=== PATIENT | male | born 1990 | race Caucasian/White ===

== ENCOUNTER 2016-09-28 15:57 | Inpatient (IN) | payer MEDICAID, OTHER, SELFPAY ==
[~2016-09-28] VITALS: Ht 182.9 cm; Wt 124.6 kg
[2016-09-28] MEDS ORDERED: HYDROXYCUT PO (16:31)
[2016-09-28] MEDS ORDERED: probiotic PO (16:31)
[2016-09-28] MEDS ORDERED: Vitamin D PO (16:31)
[2016-09-28] MEDS ORDERED: Fish oil PO (16:31)
[2016-09-28 17:47] LABS: MEAN CORPUSCULAR HEMOGLOBIN 20.5 pg (27.0-33.0); MEAN CORPUSCULAR HGB CONC 32.2 g/dl (32.0-36.5); MEAN CORPUSCULAR VOLUME 63.7 fl (80.0-96.0); RED CELL DISTRIBUTION WIDTH 16.4 % (11.5-14.5); WHITE BLOOD COUNT 7.2 K/mm3 (4.0-10.0)
[2016-09-28 18:16] LABS: ALBUMIN 3.9 GM/DL (3.2-5.2); ALBUMIN/GLOBULIN RATIO 1.18 (1.00-1.93); ALKALINE PHOSPHATASE 68 U/L (45-117); ALT/SGPT 28 U/L (12-78); ANION GAP 4 MEQ/L (8-16); AST/SGOT 17 U/L (15-37); BILIRUBIN,DIRECT 0.4 MG/DL (0.0-0.2); BILIRUBIN,TOTAL 1.7 MG/DL (0.2-1.0); BLOOD UREA NITROGEN 9 MG/DL (7-18); CALCIUM LEVEL 8.9 MG/DL (8.5-10.1); CARBON DIOXIDE LEVEL 28 MEQ/L (21-32); CHLORIDE LEVEL 108 MEQ/L (98-107); CREATININE FOR GFR 1.11 MG/DL (0.70-1.30); GLOMERULAR FILTRATION RATE > 60.0 (>60); GLUCOSE, FASTING 82 MG/DL (70-105); POTASSIUM SERUM 3.8 MEQ/L (3.5-5.1); SODIUM LEVEL 140 MEQ/L (136-145); TOTAL PROTEIN 7.2 GM/DL (6.4-8.2)
[2016-09-28 18:21] LABS: METHADONE URINE NEGATIVE (NEGATIVE)
[2016-09-29] MEDS ORDERED: QUEtiapine FUMARATE 50 MG TAB PO SCH (09:00)
[2016-09-29] MEDS ORDERED: PROBCAP14 PO (09:25)
[2016-09-29] MEDS ORDERED: HYDROXYCUT PO (09:25)
[2016-09-29] MEDS ORDERED: FISH1CAP14 PO (09:25)
[2016-09-29] MEDS ORDERED: LORazepam 1 MG TAB PO PRN (09:30)
[2016-09-29] MEDS ORDERED: MOM 30ML SUSPENSION UDC PO PRN (09:30)
[2016-09-29] MEDS ORDERED: traZODone 50 MG TAB PO PRN (09:30)
[2016-09-29] MEDS ORDERED: MAALOX 30 ML SUSP *UDC PO PRN (09:30)
[2016-09-29 11:19] VITALS: BP 125/64
[2016-09-29] MEDS: risperiDONE 1 MG TAB PO SCH ×3 (12:21→20:19)
[2016-09-29] MEDS: SERTRALINE HCL 50 MG TAB PO SCH (12:21)
[2016-09-29] MEDS: QUEtiapine FUMARATE 50 MG TAB PO SCH (20:19)
[2016-09-30 06:04] VITALS: BP 122/56
[2016-09-30] MEDS: risperiDONE 1 MG TAB PO SCH (09:41)
[2016-09-30] MEDS: SERTRALINE HCL 50 MG TAB PO SCH (09:42)
[2016-09-30] MEDS: QUEtiapine FUMARATE 50 MG TAB PO SCH (09:42)
--- NOTE | 2016-09-30 09:45 | HPEPDOC ---
Medical History and Physical Date of Admission Sep 29, 2016 at 09:26 History and Physical PCP: None ATTENDING: Dr. Reji Voss HPI: 26yoM admitted to [facility] for depressive disorder, being medically examined today. Patient states he has chronic bilateral knee pain and sometimes his knees give out a couple of times per week. There is no erythema or swelling. No grinding or popping. No radiation of pain down the legs. He does not report neck pain or low back pain. Denies any fevers, chills, weakness, fatigue, ALVARES, CP , SOB, cough, palpitations, abdominal pain, N/V/D or changes in bowel or bladder habits. PMHx: Depression Self-mutilation BMI 35.9 PSHX: Right orchiopexy. 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 Illicit Drugs: Marijuana 1-2 times IV Drug Use: Denies Tattoos done unprofessionally: Denies FAMHX: Mother: Alive, history of lymphoma Father: Alive, bipolar disorder, thyroid disease, hyperlipidemia Siblings: 2 sisters Alive, one sister with history of gender identity disorder. Children: None Unexpected deaths due to medical reasons: None. ROS: As noted in HPI, otherwise 11pt ROS of systems reviewed and unremarkable. PE: GEN: 26 yo M, appears stated age. Well-nourished, well developed. No acute distress. Alert and oriented x 3. Pleasant, interactive. HEENT: Normocephalic, atraumatic. Pupils are equal, round, and reactive to light. Extraocular movements are intact. No nystagmus appreciated. Sclera are nonicteric. Conjunctiva without injection. Nose midline. Nasal turbinates without bogginess. EACs both patent BL. TMs both visualized and acharya with good cone of light, no bulging or erythema. No facial asymmetry. Moist mucous membranes. Dentition fair. Pharynx pink and moist, no cobblestoning. Neck supple , trachea midline. No lymphadenopathy or thyromegaly appreciated. CHEST: Regular rate and rhythm, +S1, +S2 LUNGS: Clear to auscultation bilaterally. No wheezes, rales, or rhonchi. Breathing appears symmetric and easy. Patient is speaking in full sentences. No accessory muscle use. ABD: Round, soft, mild suprapubic tenderness noted, non-distended. +Bowel sounds throughout. No rebound or guarding. No costovertebral angle tenderness. EXT: Pulses 2+ bilaterally dorsalis pedis and radial. No lower extremity edema appreciated. SKIN: [place], dry, warm. Capillary refill <2sec. No rashes. Superficial lacerations appear to be healing on the left forearm. Mild erythema noted. No drainage. Superficial lacerations are noted to anterior thighs bilaterally with mild erythema, no drainage. NEURO: Alert and oriented x 3. Cranial nerves III-XII are intact. No focal deficits appreciated. EKG: Pending. A&P: 26yoM admitted to [facility] for depressive disorder 1. Psych. Plan per Psychiatry. Obtain baseline EKG to assure the safety of psychiatric medications as they can prolong the QT interval. 2. Nicotine dependence. Patch available. 3. Bilateral knee pain. Tylenol as needed. Check x-ray of the knees bilaterally. 4. Follow up. No Primary Care Provider. Will attempt to establish PCP on discharge. 5. Suprapubic discomfort, mild. She denies any urinary or bowel complaints. Check UA/urine culture. 6. Superficial lacerations to the left inner forearm, bilateral thighs. Apply Bactroban twice a day as needed. 7. Hemoglobin 11.2. Recheck CBC. Consider further evaluation of anemia pending results. 8. Staff member Ed present throughout exam. Vital Signs Vital Signs Date Time Temp Pulse Resp B/P (MAP) Pulse Ox O2 Delivery O2 Flow Rate FiO2 09/30/16 06:04 97.2 50 18 122/56 (78) 09/29/16 11:19 Room Air 09/29/16 09:51 97 Laboratory Data Labs 24H Item Value Date Time White Blood Count 7.2 K/mm3 09/28/16 1732 Red Blood Count 5.47 M/mm3 09/28/16 173 Hemoglobin 11.2 g/dl L 09/28/16 173 Hematocrit 34.9 % L 09/28/16 173 Mean Corpuscular Volume 63.7 fl L 09/28/16 173 Mean Corpuscular Hemoglobin 20.5 pg L 09/28/16 173 Mean Corpuscular Hemoglobin Concent 32.2 g/dl 09/28/16 1732 Red Cell Distribution Width 16.4 % H 09/28/16 1732 Platelet Count 133 k/mm3 L 09/28/16 1732 Sodium Level 140 MEQ/L 09/28/16 1732 Potassium Level 3.8 MEQ/L 09/28/16 1732 Chloride Level 108 MEQ/L H 09/28/16 1732 Carbon Dioxide Level 28 MEQ/L 09/28/16 1732 Anion Gap 4 MEQ/L L 09/28/16 1732 Blood Urea Nitrogen 9 MG/DL 09/28/16 1732 Creatinine 1.11 MG/DL 09/28/16 1732 Glomerular Filtration Rate > 60.0 09/28/16 1732 Fasting Glucose 82 MG/DL 09/28/16 1732 Calcium Level 8.9 MG/DL 09/28/16 1732 Total Bilirubin 1.7 MG/DL H 09/28/16 1732 Direct Bilirubin 0.4 MG/DL H 09/28/16 1732 Aspartate Amino Transf (AST/SGOT) 17 U/L 09/28/16 1732 Alanine Aminotransferase (ALT/SGPT) 28 U/L 09/28/16 1732 Alkaline Phosphatase 68 U/L 09/28/16 1732 Total Protein 7.2 GM/DL 09/28/16 1732 Albumin 3.9 GM/DL 09/28/16 1732 Albumin/Globulin Ratio 1.18 09/28/16 1732 Thyroid Stimulating Hormone (TSH) 1.580 uIU/ML 09/28/16 1732 Salicylates Level < 1.7 MG/DL L 09/28/16 1732 Urine Opiates Screen NEGATIVE 09/28/16 1732 Urine Methadone Screen NEGATIVE 09/28/16 1732 Acetaminophen Level < 2.0 UG/ML L 09/28/16 1732 Urine Barbiturates Screen NEGATIVE 09/28/16 1732 Urine Phencyclidine Screen NEGATIVE 09/28/16 1732 Urine Amphetamines Screen NEGATIVE 09/28/16 1732 Urine Benzodiazepines Screen NEGATIVE 09/28/16 1732 Urine Cocaine Metabolite Screen NEGATIVE 09/28/16 1732 Urine Cannabinoids Screen NEGATIVE 09/28/16 1732 Ethyl Alcohol Level < 0.003 % 09/28/16 1732 Home Medications Scheduled (Fish Oil +D3 [id number] mg-Unit) 1 Cap Cap, 1 CAP PO WM (Probiotic) 1 Cap Cap, 1 CAP PO DAILY [Hydroxycut] , 1 CAP PO BID Allergies Coded Allergies: No Known Allergies (Verified , 10/30/02) Genny Arriaga Sep 30, 2016 09:45
--- NOTE | 2016-09-30 10:20 | MHHPE ---
DATE OF ADMISSION: 09/29/2016 CHIEF COMPLAINT: "I've been feeling depressed, and I have suicidal thoughts." HISTORY OF PRESENT ILLNESS: A 26-year-old male admitted to our unit with symptoms of severe depression with suicidal ideation. According to the record, the patient came to be evaluated. Says that has been feeling depressed for the last couple of weeks but has the sense that always have been depressed. The patient denies treatment for several years. The patient states that has frequent suicidal thoughts with a constant sense that he will like to go to sleep and not wake up. The patient reported that last night he cut himself on the arm and both thighs and has been cutting daily for the past week. He said that he broke a relationship with a girl 3 weeks ago. They were engaged for the last 6 years. The patient does not feel that the breakup of the relationship is significant for his present depression, although he admits that he has been feeling lonely. The patient also reports that he has been drinking beers daily for about 1-1/2 weeks and says that he is doing so in order to cope. The patient also reported that has had auditory and visual hallucinations in the past but very infrequently. During the interview today, the patient reports feeling depressed with low energy, isolation, increased appetite, increased sleep, very poor self-esteem, and suicidal thoughts and ideation. As above, the patient cut himself before admission. The patient also reports feeling hopelessness, helplessness, and worthlessness. During the interview, the patient reports that for years, the patient had mood swings. Reports that the change of mood has not correlated with stressors and usually come out of the blue. Says that changes from extremely happy to anxiety to extremely low, not wanting to do anything. Says that the period of time that he remains depressed, it varies but could be an average of 1-1/2 months. The patient states that has also highs, in which he is very positive and maybe spends more money than he should. He states that in the past, he was maxing out credit cards, but the amount of money he spent is limited since was allowed to have $300. He now deals with it not getting credit cards. During the interview, there is no evidence of psychotic symptoms, no auditory or visual hallucinations. The patient says that never thought of what could be his diagnosis; but again later on, he said that his father suffers from bipolar "type 1." I tried to get details about the information he has about bipolar type 1, and he said that he has had some reading about it in the past. The patient reports that he occasionally and very rarely will have auditory hallucinations, voices, several of them. They talk to him. They talk about hurting himself or "suicide." He also reported visual hallucinations very rarely in the past. Again, at this time, there is no evidence of psychotic symptoms. The patient reports that he has been drinking lately, in order to cope, be able to sleep, and to numb the emotions and "bad feelings." He says that used to drink in the context of going to a green party with friends, that the amount and frequency vary but could be 2-3 times a week maximum. PAST MEDICAL HISTORY: The patient denies any acute medical problem. No known drug allergies. PAST PSYCHIATRIC HISTORY: The patient has never been diagnosed of any psychiatric illness, although he reports that suffers from mood swings for many years "since I can remember." FAMILY HISTORY: The patient states that his father suffers from bipolar type 1, and his father's side of the family have been diagnosed of bipolar disorder. The patient has a brother with unknown diagnosis and says that has two brothers that abuse substances but does not want to elaborate. SUBSTANCE ABUSE HISTORY: As above, the patient is drinking beer nightly for the past 1-1/2 weeks. As above, the patient was drinking excessively in the context of going to parties with friends. The frequency was 2-3 times a month maximum. SOCIAL HISTORY: The patient was raised by both parents. Has two brothers and two sisters. The parents live in [place]. His father was an active-duty. He stated that he was bullied during high school years on a daily basis. Denies physical, emotional, or sexual abuse during childhood. He is living with friends now. 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 REVIEW OF SYSTEMS: CONSTITUTIONAL: No weight loss, fever, chills, weakness, or fatigue. HEENT: No visual loss, blurry vision, double vision, or yellow sclerae. No hearing loss, sneezing, congestion, runny nose, or sore throat. SKIN: No rash or itching. CARDIOVASCULAR: No chest pain, chest pressure, chest discomfort, palpitations, or edema. RESPIRATORY: No shortness of breath, cough, or sputum. GASTROINTESTINAL (GI): No anorexia, nausea, vomiting, or diarrhea. No abdominal pain or blood. GENITOURINARY (): No burning or pain on urination. NEUROLOGICAL: No headache, dizziness, syncope, paralysis, ataxia, numbness, or tingling. MUSCULOSKELETAL: No muscle, back pain, joint pain, or stiffness. HEMATOLOGIC: No anemia, bleeding, or bruising. LYMPHATICS: No history of a splenectomy. ENDOCRINOLOGIC: No reports of sweating, cold or heat intolerance. No polyuria or polydipsia. ALLERGIES: No history of asthma, hives, eczema, or rhinitis. PHYSICAL EXAMINATION: As per physician cook's assistant. LABORATORIES AT ADMISSION: CBC show a hemoglobin of 11.2, hematocrit of 34.9, MCV of 63.7, MCH of 20.5, RDW of 16.4, platelet count of 133. CMP is unremarkable, except increase of total bilirubin. Urine drug screen (UDS) is negative. Blood alcohol level is negative. TSH is unremarkable. MENTAL STATUS EXAMINATION: The patient is dressed in [facility]. The patient is cooperative. Speech is soft and monotone. Has fair eye contact. Mood is anxious and depressed. Affect is restricted. The patient is oriented to time, place, person, and situation. Maintains attention and concentration correctly. Instant recall, recent and remote memory are intact. Thought processes are coherent, logical, and goal-directed. The patient does not have auditory or visual hallucinations. The patient does not have paranoid, persecutory, somatic, grandiose, or mormon delusions. The patient is reporting suicidal ideation but not homicidal thoughts. Judgment and insight are limited. DIAGNOSES: AXIS I: Unspecified depressive disorder, rule out bipolar disorder. Alcohol abuse. Rule out substance-induced mood disorder AXIS II: Deferred. AXIS III: None acute. INITIAL TREATMENT PLAN: The patient was admitted to the unit. Complete history was obtained. With his permission, family will be contacted, and database will be expanded. His medication regimen will be reviewed and changed accordingly. He will be provided with protected environment. He will be treated with individual, group, and milieu therapies. He will also receive supportive psychoeducation. Discharge planning will commence immediately. Length of stay will be between 7 and 10 days. Outpatient followup will be strongly recommended. The treatment plan will focus initially on depression and risk for suicide and substance abuse. MARCUS
[2016-09-30] MEDS: MUPIROCIN 2% OINT 22 GM TUBE TOP SCH ×2 (11:26→21:19)
[2016-09-30] MEDS: CitaloPRAM (CeleXA) 10 MG TABLET PO SCH (11:27)
--- NOTE | 2016-09-30 13:42 | REP ---
Bilateral knee series: Nine views. History: Knee pain. Findings: Five views of each knee are presented. Bones, joints, and soft tissues are unremarkable on the right. On the left, there is an anterior and medial noncalcified 11 mm soft tissue nodule. This should be correlated clinically. No other radiographic finding. There is no evidence of arthropathy or joint effusion on either side. Impression: Anteromedial soft tissue nodule on the left at the level of the upper pole of the patella. On sunrise view, this appears to project from the skin consistent with a dermal lesion. No bony abnormality. Signed by Kennedy Bartholomew MD 09/30/2016 02:07 P
[2016-09-30 18:00] VITALS: BP 131/60
[2016-09-30] MEDS ORDERED: QUEtiapine FUMARATE 50 MG TAB PO SCH (21:00)
--- NOTE | 2016-09-30 21:13 | ECGEPIP ---
Stationary ECG Study [facility] Test Date: 2016-09-30 Pat Name: REJI FLOREZ Department: Room: [place] [address] Gender: M [employer] V[employer] Worker: PHILIPPE : 1990 Requested By: Genny Arriaga Order Number: [id number] Reading MD: Reji Voss Measurements Intervals [place] Rate: 63 P: 37 LA: 161 QRS: 55 QRSD: 110 T: 35 QT: 406 QTc: 418 Interpretive Statements SINUS RHYTHM Comparison tracing not on file Electronically Signed On 09-30-2016 21:13:18 EDT by Reji Voss
[2016-09-30] MEDS: OXcarbazepine 150 MG TAB PO SCH (21:16)
[2016-09-30] MEDS: lamoTRIgine 25 MG TAB PO SCH (21:17)
[2016-10-01 06:33] VITALS: BP 152/61
[2016-10-01 07:59] LABS: MEAN CORPUSCULAR HEMOGLOBIN 20.6 pg (27.0-33.0); MEAN CORPUSCULAR HGB CONC 31.7 g/dl (32.0-36.5); MEAN CORPUSCULAR VOLUME 64.8 fl (80.0-96.0); RED CELL DISTRIBUTION WIDTH 16.3 % (11.5-14.5); WHITE BLOOD COUNT 6.4 K/mm3 (4.0-10.0)
[2016-10-01] MEDS: CitaloPRAM (CeleXA) 10 MG TABLET PO SCH (08:16)
[2016-10-01] MEDS: OXcarbazepine 150 MG TAB PO SCH ×2 (08:16→20:24)
[2016-10-01] MEDS: MUPIROCIN 2% OINT 22 GM TUBE TOP SCH ×2 (08:18→21:00)
[2016-10-01 10:09] LABS: PERCENT SATURATION 17.9 % (19.7-37.4)
[2016-10-01] MEDS: QUEtiapine FUMARATE 100 MG TAB PO SCH (11:50)
--- NOTE | 2016-10-01 15:13 | IPN ---
DATE: 10/01/2016 26-year-old male admitted for depression and suicidal ideation. SUBJECTIVE: "I feel about the same." OBJECTIVE: The patient reports no side effects from the medication. The patient reports insomnia and says that he wakes up several times during the night. Continues to feel depressed and have mood swings. The patient is interacting with other patients and staff in the unit and is motivated for treatment. No evidence of psychotic symptoms. MENTAL STATUS EXAMINATION: The patient is dressed in [facility]. The patient is cooperative during examination. Has fair eye contact. Speech is slow and monotone. Mood is depressed and anxious. Affect is restricted. No delusions or hallucinations. Memory, attention, and concentration are fair. The patient reports intermittent suicidal thoughts. No homicidal ideation. Insight and judgment limited. ASSESSMENT: 1. Depression. 2. Suicidal ideation. 3. Alcohol abuse. PLAN: 1. Increase Trileptal to 150 mg by mouth twice a day. 2. Continue with Lamictal 25 mg by mouth at night. 3. Increase Seroquel to 100 mg by mouth at night. 4. Continue with Celexa 5 mg by mouth in the morning. 5. Continue medication management, individual and group therapy.
[2016-10-01 18:28] VITALS: BP 118/59
[2016-10-01] MEDS: lamoTRIgine 25 MG TAB PO SCH (20:24)
[2016-10-01] MEDS ORDERED: hydrOXYzine 50 MG TAB PO STA (23:01)
[2016-10-02] MEDS: ACETAMINOPHEN TAB 650MG DOSE (2X325MG) PO PRN (06:42)
[2016-10-02 07:16] VITALS: BP 131/60
[2016-10-02] MEDS: OXcarbazepine 150 MG TAB PO SCH ×2 (08:08→21:40)
[2016-10-02] MEDS: CitaloPRAM (CeleXA) 10 MG TABLET PO SCH (08:08)
[2016-10-02] MEDS: MUPIROCIN 2% OINT 22 GM TUBE TOP SCH ×2 (08:09→21:00)
[2016-10-02] MEDS: QUEtiapine FUMARATE 100 MG TAB PO SCH (08:10)
[2016-10-02 08:11] LABS: MEAN CORPUSCULAR HEMOGLOBIN 20.8 pg (27.0-33.0); MEAN CORPUSCULAR HGB CONC 32.2 g/dl (32.0-36.5); MEAN CORPUSCULAR VOLUME 64.6 fl (80.0-96.0); RED CELL DISTRIBUTION WIDTH 16.4 % (11.5-14.5); WHITE BLOOD COUNT 5.8 K/mm3 (4.0-10.0)
--- NOTE | 2016-10-02 17:21 | IPN ---
DATE: 10/02/2016 A 26-year-old admitted for depression and suicidal ideation. SUBJECTIVE: "I'm feeling a little better. " OBJECTIVE: The patient denies any side effect from medication. Continues to report insomnia and anxiety yesterday talking to other patients The patient is motivated for treatment. There is no evidence of psychotic symptoms. No auditory or visual hallucinations or delusions. MENTAL STATUS EXAMINATION: Patient dressed in [facility]. Patient is cooperative, has fair eye contact. Speech is slow and monotone. Mood is depressed and anxious. Affect is restricted. No psychotic symptoms. No auditory or visual hallucinations or delusions. No feelings of paranoia. Memory, attention and concentration are fair. Patient reports intermittent suicidal thoughts but is able to contract for safety. No homicidal ideation. Insight and judgment are limited. ASSESSMENT: 1. Depression. 2. Suicidal ideation. 3. Alcohol abuse. PLAN: 1. Continue Trileptal 150 mg by mouth twice a day. 2. Continue Lamictal 25 mg by mouth at bedtime. 3. Increase Seroquel to 150 mg by mouth at bedtime. 4. Continue Celexa 5 mg by mouth every morning. 5. Continue medication management, individual and group therapy.
[2016-10-02 18:00] VITALS: BP 137/80
[2016-10-02] MEDS: QUEtiapine FUMARATE 50 MG TAB PO SCH (21:40)
[2016-10-02] MEDS: lamoTRIgine 25 MG TAB PO SCH (21:40)
[2016-10-03 06:00] VITALS: BP 139/70
[2016-10-03] MEDS: ACETAMINOPHEN TAB 650MG DOSE (2X325MG) PO PRN (06:31)
[2016-10-03 07:22] LABS: MEAN CORPUSCULAR HEMOGLOBIN 20.7 pg (27.0-33.0); MEAN CORPUSCULAR HGB CONC 31.8 g/dl (32.0-36.5); MEAN CORPUSCULAR VOLUME 65.2 fl (80.0-96.0); RED CELL DISTRIBUTION WIDTH 16.7 % (11.5-14.5); WHITE BLOOD COUNT 7.1 K/mm3 (4.0-10.0)
[2016-10-03] MEDS: CitaloPRAM (CeleXA) 10 MG TABLET PO SCH (08:20)
[2016-10-03] MEDS: OXcarbazepine 150 MG TAB PO SCH ×2 (08:20→20:59)
[2016-10-03] MEDS: MUPIROCIN 2% OINT 22 GM TUBE TOP SCH ×2 (08:20→20:59)
--- NOTE | 2016-10-03 12:42 | IPN ---
DATE: 10/03/2016 CHIEF COMPLAINT: Says feels better. SUBJECTIVE: Seen for followup, indicates feels better, is less depressed, less anxious, has been sleeping better. Denies any thoughts of harming himself or anyone else. Says had cut himself prior to coming in, in his left arm, in order to obtained emotional relief. Has no desires to cut himself either. MENTAL STATUS EXAMINATION: He is neat. He is cooperative. He is coherent. There is good eye contact. Affect is reactive, broad. No evidence of any thoughts of harming himself. Denies any suicidal thoughts or intent. No homicidal ideas or intents. No evidence of any psychosis. Cognition grossly intact. His judgment is good. Insight is possibly improved. ASSESSMENT: Unspecified depressive disorder. Rule out bipolar disorder. Alcohol use disorder. PLAN: Continue current care, including the Seroquel, Trileptal, Lamictal and Celexa. Encourage participation in activities in the unit. VITAL SIGNS: Blood pressure 139/70, pulse 58, temperature 98.1.
[2016-10-03 18:00] VITALS: BP 136/61
[2016-10-03] MEDS: lamoTRIgine 25 MG TAB PO SCH (20:59)
[2016-10-03] MEDS: QUEtiapine FUMARATE 50 MG TAB PO SCH (20:59)
[2016-10-04 06:00] VITALS: BP 113/56
[2016-10-04] MEDS: CitaloPRAM (CeleXA) 10 MG TABLET PO SCH (08:03)
[2016-10-04] MEDS: OXcarbazepine 150 MG TAB PO SCH ×2 (08:03→21:10)
[2016-10-04] MEDS: ACETAMINOPHEN TAB 650MG DOSE (2X325MG) PO PRN ×2 (08:05→21:11)
[2016-10-04] MEDS: MUPIROCIN 2% OINT 22 GM TUBE TOP SCH ×2 (09:00→21:00)
[2016-10-04 18:00] VITALS: BP 140/85
[2016-10-04] MEDS ORDERED: LORazepam 1 MG TAB PO ONE (18:20)
[2016-10-04] MEDS: lamoTRIgine 25 MG TAB PO SCH (21:10)
[2016-10-04] MEDS: QUEtiapine FUMARATE 50 MG TAB PO SCH (21:10)
[2016-10-05 06:16] VITALS: BP 124/57
[2016-10-05] MEDS: MUPIROCIN 2% OINT 22 GM TUBE TOP SCH (08:02)
[2016-10-05] MEDS: CitaloPRAM (CeleXA) 10 MG TABLET PO SCH (08:04)
[2016-10-05] MEDS: OXcarbazepine 150 MG TAB PO SCH (08:04)
[2016-10-05] MEDS: ACETAMINOPHEN TAB 650MG DOSE (2X325MG) PO PRN (08:05)
[2016-10-05] MEDS ORDERED: CELE10TA PO (11:27)
[2016-10-05] MEDS ORDERED: QUET5TAB PO (11:27)
[2016-10-05] MEDS ORDERED: LAMI25TA PO (11:27)
[2016-10-05] MEDS ORDERED: OXCA150T PO (11:27)
--- NOTE | 2016-10-06 00:35 | MHDS ---
DATE OF ADMISSION: 09/29/2016 DATE OF DISCHARGE: 10/05/2016 LEGAL STATUS AT ADMISSION: 9.39 legal status. HISTORY OF PRESENT ILLNESS: 26-year-old male without prior psychiatric history admitted to our unit on a 9.39 legal status. Patient reported severe symptoms of depression and suicidal ideation. According to the record, patient has been feeling depressed for the last couple of weeks, but also has the sense that he has always been depressed. Patient denies treatment for several years. Patient reported he has frequent suicidal thoughts with a constant sense that he would like to go to sleep and not wake up. Patient reported that last night he cut himself on the left arm and both thighs and has been cutting daily for the past week. He said that he broke a relationship with a girl 3 weeks ago. They were engaged for the last 6 years. Patient does not feel that the breakup of the relationship is significant for his present depression, although he admits that he has been feeling lonely. Patient also reports that he has been drinking beers daily for about 1-1/2 weeks and says that he is doing so in order to cope. Patient also reported that he had auditory and visual hallucinations in the past, but they are very "infrequent." During the interview today, patient reports feeling depressed with low energy, isolation, increased appetite, increased sleep, very poor self-esteem, and suicidal thoughts. As above, patient cut himself before admission. Patient also reports feeling hopeless and helpless and also worthless. During the interview, patient reports that for years he has had mood swings and that the changes of his mood are not correlated with stressors as they usually come out of the blue. He says that he changes from extremely happy to anxiety to extremely low, not wanting to do anything. He says that the period of time that he remains depressed varies, but could be an average of 1-1/2 months. Patient states that he also has highs in which he is very positive and maybe spends more money than he should. He says that in the past he has maxed out his credit cards, but the amount of money he spent is limited since he is allowed to have a maximum of $300. During the interview, there is no evidence of psychotic symptoms, no auditory or visual hallucinations. Exploring the auditory hallucinations in the past, patient said that he heard voices "several of them," voices that talked to him and they talked about hurting himself or "suicide." He also reported visual hallucinations, but very rarely. Again, at this time, there is no evidence of any psychotic symptoms. Patient reports that he has been drinking lately in order to cope, to be able to sleep, and also to numb his emotions and "bad feelings." He stated that he used to drink in the context of going to a green party with friends but the frequency could be no more than 2-3 times a week. At admission, CBC showed a hemoglobin of 11.2, hematocrit of 34.9, MCV of 63.7, MCH of 20.5, RDW of 16.4, platelets 133. CMP was unremarkable except total bilirubin of 1.7. Urine drug screen was negative. Blood alcohol level was negative. HOSPITAL COURSE: After the first evaluation, and given the fact that he was giving a history of mood swings and a family history of bipolar disorder, he was started on Trileptal 150 mg by mouth twice a day and Lamictal 25 mg by mouth nightly with the idea of maximizing the last medication and then taper Trileptal and discontinue, he was also started on Celexa 5 mg by mouth every morning. Given the fact that he reports severe problem with sleep, he is started on Seroquel, increased up to 150 mg by mouth nightly, for patient to be able to sleep. Patient tolerated well the medication. His mood changed very rapidly, actually he was interacting very well with other patients and staff. I could not observe, during this admission, a clear cut of a depressive episode, so everything was taken from the information he was giving us at admission. On 10/05/2016, he said that he was ready to go, that he was not having any suicidal or homicidal ideation, and that he wanted to continue his treatment as outpatient. Social work said that at admission he did not want to sign a release of information for any relative. Now, at the moment of discharge, patient says that his father came to town to pickle maker his brother and then he realized that he was in the hospital and he has offered for him to go and live with him in [place]. He is to think about it, but probably he will go. At the moment of discharge, patient is in a stable condition with no auditory or visual hallucinations, delusions, suicidal or homicidal ideation. His diagnosis at this point is not clear since I could not see a clear cut depressive episode and his mood improved in 48-72 hours. Anyhow, he will continue with the current medications at discharge and will be followed up by psychiatry at the local [facility]. MEDICATIONS AT DISCHARGE: - Lamictal 25 mg by mouth nightly to be increased slowly as tolerated to reach mood stabilization - Trileptal 150 mg by mouth twice a day to be tapered and discontinued after Lamictal is at therapeutic level - Celexa 5 mg by mouth every morning, the low dose is due to the fact that he reported bipolar like symptoms MENTAL STATUS EXAMINATION AT DISCHARGE: Patient is dressed in [facility]. Patient is calm and cooperative. His speech is clear, coherent, with normal rate and is spontaneous. Patient has good eye contact. Mood is euthymic. Affect is appropriate and congruent with mood. Patient is oriented to time, place, person, and situation. Maintains attention and concentration correctly. Instant recall, recent, and remote memory are intact. Thought processes are coherent, logical, and goal-directed. Patient does not have auditory or visual hallucinations. Patient does not have paranoid, persecutory, somatic, grandiose, or religions delusions. Patient denies suicidal or homicidal ideation. Judgment and insight are fair. DISCHARGE DIAGNOSES: AXIS I: Unspecified depressive disorder. Rule out bipolar disorder. Alcohol abuse. AXIS II: Deferred. AXIS III: None acute. CONDITION AT DISCHARGE: Stable. No suicidal or homicidal ideation. No auditory or visual hallucinations, no delusions. INSTRUCTIONS TO THE PATIENT: Patient is to continue taking his medications as prescribed on followup appointments. He is advised to maintain absolute sobriety from drugs and alcohol. Patient will have scheduled appointment for individual psychotherapy, medication management, and primary care physician.
== END 2016-10-05 13:40 | disposition home or self-care (01) | DRG 754 ==
LOC: M ED 18:48 → M ED INP 09-29 09:26 → M PSY 09-29 10:39
PROVIDERS: ADMIT Psychiatry & Neurology Psychiatry; ATTEND Psychiatry & Neurology Psychiatry
DX: F32.9 Major depressive disorder, single episode, unspecified (principal); R45.851 Suicidal ideations; F10.10 Alcohol abuse, uncomplicated; Z68.35 Body mass index [BMI] 35.0-35.9, adult; F17.290 Nicotine dependence, other tobacco product, uncomplicated; Z80.7 Family history of other malignant neoplasms of lymphoid, hematopoietic and related tissues; Z81.8 Family history of other mental and behavioral disorders; Z83.49 Family history of other endocrine, nutritional and metabolic diseases; M25.561 Pain in right knee; M25.562 Pain in left knee; S51.812A Laceration without foreign body of left forearm, initial encounter; S71.111A Laceration without foreign body, right thigh, initial encounter; S71.112A Laceration without foreign body, left thigh, initial encounter; Z79.899 Other long term (current) drug therapy; X78.1XXA Intentional self-harm by knife, initial encounter; Y92.9 Unspecified place or not applicable; Y99.9 Unspecified external cause status; Y93.9 Activity, unspecified

== ENCOUNTER 2016-10-15 16:22 | Inpatient (IN) | payer MEDICAID, SELFPAY ==
[~2016-10-15] VITALS: Ht 182.9 cm; Wt 132.2 kg
[~2016-10-15 16:22] MED LIST: CELE10TA PO; FISH1CAP14 PO; Fish oil PO; HYDROXYCUT PO; LAMI25TA PO; OXCA150T PO; PROBCAP14 PO; QUET5TAB PO; Vitamin D PO; probiotic PO
[2016-10-15 17:25] LABS: MEAN CORPUSCULAR HEMOGLOBIN 20.8 pg (27.0-33.0); MEAN CORPUSCULAR HGB CONC 32.2 g/dl (32.0-36.5); MEAN CORPUSCULAR VOLUME 64.8 fl (80.0-96.0); RED CELL DISTRIBUTION WIDTH 15.9 % (11.5-14.5); WHITE BLOOD COUNT 6.6 K/mm3 (4.0-10.0)
[2016-10-15 17:49] LABS: METHADONE URINE NEGATIVE (NEGATIVE)
[2016-10-15 18:01] LABS: ALBUMIN 4.2 GM/DL (3.2-5.2); ALBUMIN/GLOBULIN RATIO 1.14 (1.00-1.93); ALKALINE PHOSPHATASE 76 U/L (45-117); ALT/SGPT 43 U/L (12-78); ANION GAP 8 MEQ/L (8-16); AST/SGOT 19 U/L (15-37); BILIRUBIN,DIRECT 0.3 MG/DL (0.0-0.2); BILIRUBIN,TOTAL 2.3 MG/DL (0.2-1.0); BLOOD UREA NITROGEN 9 MG/DL (7-18); CALCIUM LEVEL 8.8 MG/DL (8.5-10.1); CARBON DIOXIDE LEVEL 28 MEQ/L (21-32); CHLORIDE LEVEL 107 MEQ/L (98-107); GLOMERULAR FILTRATION RATE > 60.0 (>60); GLUCOSE, FASTING 107 MG/DL (70-105); SODIUM LEVEL 143 MEQ/L (136-145); TOTAL PROTEIN 7.9 GM/DL (6.4-8.2)
[2016-10-15] MEDS ORDERED: OXCA150T PO (20:32)
[2016-10-15] MEDS ORDERED: SERO50TA PO (20:32)
[2016-10-15] MEDS ORDERED: CITA10TA5 PO (20:32)
[2016-10-15] MEDS ORDERED: LAMO25TA2 PO (20:32)
[2016-10-15] MEDS ORDERED: lamoTRIgine 25 MG TAB PO SCH (21:00)
[2016-10-15] MEDS ORDERED: MAALOX 30 ML SUSP *UDC PO PRN (22:45)
[2016-10-15] MEDS ORDERED: MOM 30ML SUSPENSION UDC PO PRN (22:45)
[2016-10-15] MEDS ORDERED: traZODone 50 MG TAB PO PRN (22:45)
[2016-10-15] MEDS: QUEtiapine FUMARATE 50 MG TAB PO SCH (23:15)
[2016-10-15] MEDS: OXcarbazepine 150 MG TAB PO SCH (23:15)
[2016-10-15] MEDS: ACETAMINOPHEN TAB 650MG DOSE (2X325MG) PO PRN (23:16)
[2016-10-16 00:59] VITALS: BP 138/80
[2016-10-16 06:33] VITALS: BP 143/63
[2016-10-16] MEDS: OXcarbazepine 150 MG TAB PO SCH ×2 (08:10→21:32)
[2016-10-16] MEDS: ACETAMINOPHEN TAB 650MG DOSE (2X325MG) PO PRN ×2 (08:11→21:33)
[2016-10-16] MEDS ORDERED: CitaloPRAM (CeleXA) 10 MG TABLET PO SCH (09:00)
[2016-10-16] MEDS: lamoTRIgine 25 MG TAB PO SCH ×2 (12:26→21:32)
--- NOTE | 2016-10-16 16:39 | MHHPE ---
DATE OF ADMISSION: 10/15/2016 LEGAL STATUS AT ADMISSION: 939 legal status. CHIEF COMPLAINT: "I've been having suicidal thoughts." HISTORY OF PRESENT ILLNESS: A 26-year-old male with history of depression admitted to our unit on a 939 legal status. According to the chart, the patient was brought to the police on a 941 after he made suicidal threats to his friend and his father. The patient stated that he was drinking. He was discharged from our unit on 10/05/2016. The patient also reported that he was cutting himself and has multiple superficial cuts on the left arm that he made with a razor blade. The patient admits the use of alcohol and cannabis. The patient was guarded during his evaluation at the emergency department, and he was minimizing. He was making statements such as, "I guess so." During the interview today, the patient states that he minimized and at times lied to me in order to be discharged. Said that he went to visit his family in [place] and returned. He says that he has been having significant mood swings and depression, but says that when he drinks, feelings get worse, and he has a tendency to act out his thoughts. The patient reports that he has been compliant with the medication, and the only time he did not take the medication was when he drank. During the interview today, the patient reports feeling depressed, hopeless, poor energy, insomnia, and has suicidal thoughts. The patient can make the difference between the suicidal thoughts and the self-inflicted behavior when he cuts his arm. During the interview there is no evidence of psychotic symptoms. No auditory or visual hallucinations or delusions. The patient denies side effect from the medication. PAST MEDICAL HISTORY: The patient denies any acute medical problems. ALLERGIES: No known drug allergies. PAST PSYCHIATRIC HISTORY: As above. The patient was admitted to our unit and discharged on 10/05/2016. He was admitted for depression and suicidal ideation, and he was reported significant mood swings, sometimes could be compatible with bipolar illness. FAMILY HISTORY: The patient reports his father suffers from bipolar type 1 disorder and also said that his father's side of the family has been diagnosed of bipolar disorder. He stated that he has two brothers that use substances, but he did not want to elaborate, and one of the brothers he believes has psychiatric problems but does not know the diagnosis. SUBSTANCE ABUSE HISTORY: The patient admits the use of alcohol and marijuana. The patient stated that he used to drink in the context of going out with friends and socializing, but stated that this is happening 2-3 times a month at the most. SOCIAL HISTORY: The patient was raised by both parents, has two brothers and two sisters. His parents live in [place]. His father was in the . He reports being bullied during high school on a daily basis. He denied any physical, emotional or sexual abuse during childhood. 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 Says that his father wants him to move to [place]. REVIEW OF SYSTEMS: Constitutional: No weight loss, fever, chills, weakness or fatigue. HEENT: No visual loss, blurry vision, double vision or yellow sclerae. No hearing loss, nasal congestion, runny nose or sore throat. Skin: No rash or itching. Cardiovascular: No chest pain, chest pressure, chest discomfort, palpitations or edema. Respiratory: No shortness of breath, cough or sputum. Gastrointestinal (GI): No anorexia, nausea, vomiting, or diarrhea. No abdominal pain or blood. Genitourinary (): No burning or pain on urination. Neurologic: No headache, dizziness, syncope, paralysis, ataxia, numbness or tingling. Musculoskeletal: No muscle back pain, joint pain or stiffness. Hematologic: No anemia, bleeding or bruising. Lymphatic: No history of splenectomy. Endocrinologic: No reports of sweating, cold or heat intolerance, or polyuria or polydipsia. Allergies: No history of asthma, hives, eczema or rhinitis. PHYSICAL EXAMINATION: As per physician safety admin assistant. LABORATORIES AT ADMISSION: His CBC shows a hemoglobin of 12.2, hematocrit 38, MCV of 64, MCH of 20, RDW of 15.9. CMP is unremarkable, but total bilirubin is 2.3. TSH within normal limits. UDS is negative. Blood alcohol level is 0.14. MENTAL STATUS EXAMINATION: The patient is dressed in [facility]. The patient is cooperative. Speech is soft and monotone. Has fair eye contact. Mood is depressed and anxious. Affect is restricted. The patient is oriented to time, place, person and situation. Maintains attention and concentration correctly. Instant recall, recent and remote memory are intact. Thought processes are coherent and logical and goal directed. The patient does not have auditory or visual hallucinations. The patient does not have paranoid, persecutory, somatic, grandiose or episcopal delusions. The patient reports suicidal ideation but not homicidal thoughts. Judgment and insight are limited. DIAGNOSES: AXIS I: Unspecified depressive disorder. Rule out bipolar disorder. Alcohol abuse. Substance-induced mood disorder. AXIS II: Deferred. AXIS III: None acute. INITIAL TREATMENT PLAN: The patient was admitted on a 939 legal status. Complete history was obtained. With his permission, family will be contacted and database will be expanded. His medication regime will be reviewed and changed accordingly. He will be provided with protected environment. He will be treated with individual, group and milieu therapies. He will also receive supportive psychoeducation. Discharge planning will commence immediately. Length of stay will be between 5-7 days. Outpatient followup will be strongly recommended. Treatment plan will focus initially on depression, risk for suicide, and alcohol abuse.
[2016-10-16 18:00] VITALS: BP 114/54
[2016-10-16] MEDS: QUEtiapine FUMARATE 50 MG TAB PO SCH (21:32)
[2016-10-17 06:00] VITALS: BP 126/50
[2016-10-17] MEDS: lamoTRIgine 25 MG TAB PO SCH ×2 (08:49→23:00)
[2016-10-17] MEDS: OXcarbazepine 150 MG TAB PO SCH ×2 (08:49→23:00)
[2016-10-17] MEDS: CitaloPRAM (CeleXA) 10 MG TABLET PO SCH (08:50)
[2016-10-17] MEDS: ACETAMINOPHEN TAB 650MG DOSE (2X325MG) PO PRN ×2 (11:36→23:03)
[2016-10-17 18:00] VITALS: BP 112/53
[2016-10-17] MEDS: BACITRACIN OINT 30GM TOP SCH (21:00)
[2016-10-17] MEDS: QUEtiapine FUMARATE 50 MG TAB PO SCH (23:01)
--- NOTE | 2016-10-18 02:38 | HPE ---
DATE OF ADMISSION: 10/15/2016 HISTORY OF PRESENT ILLNESS: Please refer to psychiatric history and evaluation for further details on this admission. This examination and history is intended for medical issues, which may need treatment, followup or consult on this 26-year-old male who was recently discharged on the 05 of October from the inpatient mental health unit. SOCIAL HISTORY: He is a single. He lives in [place]. He vapes cigarettes. He uses a vapor. Ethyl alcohol (EtOH) two times per week, between three and 30 drinks. Recreational drug use: Marijuana 1-2 times a week. PAST MEDICAL HISTORY: Depression, self-mutilation. PAST SURGICAL HISTORY: Right orchiopexy undescended right testicle. HOME MEDICATIONS: - citalopram 5 mg by mouth daily - Lamictal 25 mg by mouth nightly - oxcarbazepine 150 mg by mouth twice a day - Seroquel 50 mg by mouth nightly FAMILY HISTORY: Mother alive, has history of lymphoma. Father is alive, bipolar disorder, thyroid disease, hyperlipidemia. Siblings, two sisters alive. One with a history of gender identity disorder. Children none. LABORATORY STUDIES: WBC 6.6, hemoglobin 12.2, hematocrit 38.0, MCV 64.8, platelets 184. Electrolytes were normal. Total bilirubin was elevated at 2.3. Direct bilirubin 0.3. EtOH was 0.140. REVIEW OF SYSTEMS: 10-system review was done, reviewed and unremarkable. PHYSICAL EXAMINATION: 26-year-old cooperative male in no acute distress. Vital signs are stable. Height 72 inches, weight 124 kg, body mass index (BMI) 37.1. Blood pressure 114/54, pulse 65, respirations 15, temperature 97.6. Patient is alert and oriented times three. Pupils equal and react to light. Extraocular muscles intact. Cornea and sclerae clear. Conjunctivae were normal. No facial asymmetry. Pharynx, tongue and gums pink and moist. Tongue is midline. Neck is supple without lymphadenopathy. No thyromegaly, no goiter. Carotids 2+ without bruit. Chest clear to auscultation without wheeze or retraction. Heart is regular. Abdomen is benign. Bowel sounds positive. Genitourinary/rectal: Not done. Extremities: Show equal strength, full range of motion. No cyanosis, clubbing or edema. Peripheral pulses equal and palpable bilaterally. Skin is warm and dry. Bilateral upper thighs self-inflicted lacerations in various stages of healing. No redness or drainage. Left forearm self-inflicted lacerations, numerous. No drainage. IMPRESSION/PLAN: 1. Psychiatric plan per psychiatry. 2. Bacitracin ointment twice a day times 7 days to lacerations on left arm. Followup. No primary care provider. Will attempt to establish primary care provider (PCP) on discharge. Self-inflicted lacerations of the left inner forearm, bilateral thighs in various stages of healing. Lacerations new on the left inner forearm. Apply bacitracin twice a day for a week. 3. Low hemoglobin and low MCV. Will get serum iron, iron binding capacity and ferritin.
--- NOTE | 2016-10-18 05:51 | IPN ---
DATE OF SERVICE: 10/17/2016 I evaluated a 26-year-old male known for: 1. Unspecified depressive disorder. 2. Rule out bipolar disorder. 3. Alcohol abuse. 4. Substance-induced mood disorder. Patient reports that he was brought into the emergency department because he was cutting while being intoxicated with alcohol. He states that he self-mutilates because he gets relief from emotional pain. He reports the last time that he had a suicidal thought was today, in the morning before the psychiatric evaluation. He states that yesterday he had thoughts of self-harming, (cutting himself). He denies homicidal ideation and reports that occasionally he hears voices, but he cannot understand what they say. He denies visual hallucinations and denies nightmares. Currently, the patient is on Celexa 10 mg by mouth every morning, Lamictal 25 mg by mouth twice a day, Trileptal 150 mg by mouth twice a day, and Seroquel 150 mg by mouth nightly. Patient reports that he is feeling better, although he still has fleeting suicidal thoughts. Will monitor him closely and will followup tomorrow, 10/18/2016. At this time, he reports that he feels better than when he was admitted, so he is responding to treatment. Will followup.
[2016-10-18 06:00] VITALS: BP 122/58
[2016-10-18 07:34] LABS: ALBUMIN 3.6 GM/DL (3.2-5.2); ALBUMIN/GLOBULIN RATIO 1.06 (1.00-1.93); ALKALINE PHOSPHATASE 70 U/L (45-117); ALT/SGPT 33 U/L (12-78); ANION GAP 6 MEQ/L (8-16); AST/SGOT 15 U/L (15-37); BILIRUBIN,TOTAL 1.1 MG/DL (0.2-1.0); BLOOD UREA NITROGEN 14 MG/DL (7-18); CALCIUM LEVEL 8.7 MG/DL (8.5-10.1); CARBON DIOXIDE LEVEL 30 MEQ/L (21-32); CHLORIDE LEVEL 106 MEQ/L (98-107); FERRITIN 119 NG/ML (26-388); GLOMERULAR FILTRATION RATE > 60.0 (>60); GLUCOSE, FASTING 84 MG/DL (70-105); PERCENT SATURATION 28.7 % (19.7-37.4); POTASSIUM SERUM 3.8 MEQ/L (3.5-5.1); SODIUM LEVEL 142 MEQ/L (136-145); TOTAL IRON BINDING CAPACITY 307 UG/DL (250-450)
[2016-10-18] MEDS: ACETAMINOPHEN TAB 650MG DOSE (2X325MG) PO PRN ×2 (08:25→21:53)
[2016-10-18] MEDS: CitaloPRAM (CeleXA) 10 MG TABLET PO SCH (08:25)
[2016-10-18] MEDS: OXcarbazepine 150 MG TAB PO SCH ×2 (08:25→21:52)
[2016-10-18] MEDS: lamoTRIgine 25 MG TAB PO SCH ×2 (08:25→21:52)
[2016-10-18] MEDS: BACITRACIN OINT 30GM TOP SCH ×2 (08:26→21:00)
[2016-10-18 18:00] VITALS: BP 136/63
--- NOTE | 2016-10-18 18:03 | MHIPNPDOC ---
[facility] Progress Note Progress Note DATE OF SERVICE: 10/18/16 INTERVAL HISTORY: Medication Side effects: reports no side effects with medications at this time Behavior/events: the patient has been amenable to staff interventions with no acute events overnight Group Attendance: has attended groups at times Psychiatric Symptoms: reports that he still has some passive suicidal thoughts, but no intention to act on them. He reports still having some depressive thoughts with difficulties such as sleeping and enjoyment of activities. VITAL SIGNS: See below. NEW TEST RESULTS: See below CURRENT MEDICATIONS: See below. MENTAL STATUS EXAMINATION: General: Well dressed with good hygiene Speech: Spontaneous and fluid Thought processes: Linear and logical Thought content: remorse Abstract reasoning, and computation: Intact Description of associations: Intact Description of abnormal or psychotic thoughts: admits to passive suicidal thoughts without plan or intention. Denies homicidal ideation. Denies any auditory or visual hallucinations. Does not appear to be responding to internal stimuli. Does not appear to be endorsing any bizarre or paranoid ideation. Judgment: limited Insight: limited Orientation: Alert and orientated 3 Recent and remote memory: Intact Attention span and concentration: Intact Fund of knowledge: Adequate Mood: "okay" Affect: dysthymic with constricted range DIAGNOSES: 1. Unspecified depressive disorder. 2. Unspecified anxiety disorder. 3. Borderline traits ASSESSMENT: unstable MANAGEMENT PLAN: Medications: continue psychotropic medications as below with no changes from yesterday Psychotherapy: encourage group therapy Social: no plan for discharge at this time Misc: none Disposition: The patient will need of further inpatient stay to address severe depression and passive suicidal thoughts. TIME SPENT: 15 minutes. Vital Signs Vital Signs Date Time Temp Pulse Resp B/P (MAP) Pulse Ox O2 Delivery O2 Flow Rate FiO2 10/18/16 06:00 97.4 56 16 122/58 (79) 10/15/16 21:44 99 10/15/16 16:30 Room Air Laboratory Data 24H Labs Laboratory Tests 2 10/18/16 06:40: Anion Gap 6L, Glomerular Filtration Rate > 60.0, Blood Urea Nitrogen 14#, Creatinine 1.10, Sodium Level 142, Potassium Level 3.8, Chloride Level 106, Carbon Dioxide Level 30, Calcium Level 8.7, Aspartate Amino Transf (AST/SGOT) 15 , Alanine Aminotransferase (ALT/SGPT) 33, Alkaline Phosphatase 70, Total Bilirubin 1.1#H, Total Protein 7.0, Albumin 3.6, Iron Level 88, Total Iron Binding Capacity 307, Transferrin % Saturation 28.7, Ferritin 119, Albumin/ Globulin Ratio 1.06 CBC/BMP Laboratory Tests 10/18/16 06:40 Calcium Level 8.7, Aspartate Amino Transf (AST/SGOT) 15, Alanine Aminotransferase (ALT/SGPT) 33, Alkaline Phosphatase 70, Total Bilirubin 1.1 #H , Total Protein 7.0, Albumin 3.6 Current Medications Current Medications Acetaminophen (Tylenol Tab) 650 mg Q6HP PRN PO HEADACHE or DISCOMFORT Last administered on 10/18/16 08:25; Start 10/15/16 at 22:45; Stop 11/14/16 at 22:44 Al Hydrox/Mg Hydrox/Simethicone (Mylanta) 30 ml Q4HP PRN PO HEARTBURN/ INDIGESTION; Start 10/15/16 at 22:45; Stop 11/14/16 at 22:44 Bacitracin (Bacitracin Oint) bid for seven days ... BID TOP ; Start 10/17/16 at 21:00; Stop 10/24/16 at 10:00 Citalopram Hydrobromide (CeleXA) 5 mg DAILY PO Last administered on 10/16/16 08:11; Start 10/16/16 at 09:00; Stop 10/16/16 at 11:38; Status DC Citalopram Hydrobromide (CeleXA) 10 mg QAM PO Last administered on 10/18/16 08 :25; Start 10/17/16 at 09:00; Stop 11/16/16 at 08:59 Home Med (Med Rec Complete!) ASDIRECTED XX ; Start 10/15/16 at 20:45; Stop at 20:45; Status DC Lamotrigine (LaMICtal) 25 mg BID PO Last administered on 10/18/16 08:25; Start 10/16/16 at 09:00; Stop 11/15/16 at 08:59 Lamotrigine (LaMICtal) 25 mg QHS PO Last administered on 10/15/16 23:15; Start 10/15/16 at 21:00; Stop 10/16/16 at 11:38; Status DC Magnesium Hydroxide (Milk Of Magnesia) 30 ml DAILYPRN PRN PO CONSTIPATION; Start 10/15/16 at 22:45; Stop 11/14/16 at 22:44 Oxcarbazepine (Trileptal) 150 mg BID PO Last administered on 10/18/16 08:25; Start 10/15/16 at 21:00; Stop 11/14/16 at 20:59 Quetiapine Fumarate (SEROquel) 150 mg QHS PO Last administered on 10/17/16 23: 01; Start 10/15/16 at 21:00; Stop 11/14/16 at 20:59 Trazodone HCl (Desyrel) 50 mg QHSP PRN PO INSOMNIA Last administered on 23:15; Start 10/15/16 at 22:45; Stop 10/16/16 at 11:38; Status DC Allergies Coded Allergies: No Known Allergies (Verified , 10/30/02) GME ATTESTATION My preceptor for this patient encounter was physically present in the building during the encounter and was fully available. As needed, all aspects of the patient interview, examination, medical decision making process, and medical care plan development were reviewed and approved by the preceptor. Preceptor is aware and concurs with the plan as stated in the body of this note and will attest to such by his/her cosignature. PEDRO PIERRE DO Oct 18, 2016 18:03
[2016-10-18] MEDS: QUEtiapine FUMARATE 50 MG TAB PO SCH (21:52)
[2016-10-19 06:22] VITALS: BP 137/60
[2016-10-19] MEDS: BACITRACIN OINT 30GM TOP SCH ×2 (08:46→21:00)
[2016-10-19] MEDS: CitaloPRAM (CeleXA) 10 MG TABLET PO SCH (08:47)
[2016-10-19] MEDS: OXcarbazepine 150 MG TAB PO SCH ×2 (08:47→21:21)
[2016-10-19] MEDS: lamoTRIgine 25 MG TAB PO SCH ×2 (08:47→21:21)
[2016-10-19] MEDS: ACETAMINOPHEN TAB 650MG DOSE (2X325MG) PO PRN (16:45)
[2016-10-19 18:21] VITALS: BP 136/68
--- NOTE | 2016-10-19 19:23 | IPN ---
DATE: 10/19/2016 26-year-old male with history of depression, admitted to our unit in a 9.39 legal status. The patient was admitted for significant symptoms of depression and suicidal ideation. SUBJECTIVE: "I am about the same." OBJECTIVE: The patient continues depressed with psychomotor retardation and low energy. The patient continues to have intermittent suicidal thoughts, but is able to contract for safety during his hospitalization. Denies auditory or visual hallucinations. No delusions. MENTAL STATUS EXAMINATION: The patient is dressed in [facility]. The patient is cooperative during the interview. The patient has fair eye contact. Speech is slow and monotone. Mood is depressed and anxious, somewhat improved from admission. Affect is congruent with mood. No delusions or hallucinations. Memory, attention and concentration are fair. The patient is able to contract for safety during the interview. Reports intermittent suicidal thoughts. Insight and judgment are limited. ASSESSMENT: 1. Depression. 2. Suicidal ideation. 3. Alcohol/cannabis abuse. PLAN: Increase Celexa to 20 mg by mouth in the morning. Continue with Lamictal 25 mg by mouth twice a day. Continue with Trileptal 150 mg by mouth twice a day. Decrease Seroquel to 100 mg by mouth at night.
[2016-10-19] MEDS: QUEtiapine FUMARATE 100 MG TAB PO SCH (21:21)
[2016-10-20 06:27] VITALS: BP 134/63
[2016-10-20 07:55] LABS: MEAN CORPUSCULAR HEMOGLOBIN 20.9 pg (27.0-33.0); MEAN CORPUSCULAR VOLUME 65.3 fl (80.0-96.0); RED CELL DISTRIBUTION WIDTH 16.8 % (11.5-14.5); WHITE BLOOD COUNT 7.2 K/mm3 (4.0-10.0)
[2016-10-20] MEDS: lamoTRIgine 25 MG TAB PO SCH ×2 (08:05→20:59)
[2016-10-20] MEDS: OXcarbazepine 150 MG TAB PO SCH ×2 (08:05→20:58)
[2016-10-20] MEDS: CitaloPRAM (CeleXA) 20 MG TAB PO SCH (08:05)
[2016-10-20] MEDS: BACITRACIN OINT 30GM TOP SCH (08:06)
[2016-10-20] MEDS: ACETAMINOPHEN TAB 650MG DOSE (2X325MG) PO PRN ×2 (08:08→20:59)
--- NOTE | 2016-10-20 16:07 | IPN ---
DATE: 10/20/2016 A 26-year-old male with history of depression, admitted to our unit on a 9.39 legal status. The patient was admitted for significant symptoms of depression and suicidal ideation. SUBJECTIVE: "I could not sleep well last night." OBJECTIVE: The patient continues to feel depressed, although he is improving very slowly. The patient continues to have intermittent suicidal thoughts. The patient denies auditory or visual hallucinations or delusions. The patient is tolerating well the medication and denies side effect. MENTAL STATUS EXAMINATION: The patient is dressed in [facility]. The patient is clean and well-groomed. The patient is cooperative. He has fair eye contact. Speech is slow and monotone. Mood is depressed and anxious, but somewhat improved from admission. Affect is restricted. No delusions or hallucinations. Memory, attention and concentration are fair. The patient is able to contract for safety during the interview, but reports intermittent suicidal thoughts. Insight and judgment is limited. ASSESSMENT: 1. Depression. 2. Suicidal ideation. 3. Alcohol/cannabis abuse. PLAN: 1. Continue Celexa 20 mg by mouth every morning. 2. Increase Lamictal to 25 mg by mouth every morning and 50 mg by mouth at bedtime. 3. Continue Trileptal 150 mg by mouth twice a day. 4. Continue Seroquel 100 mg by mouth at bedtime.
[2016-10-20 18:12] VITALS: BP 138/78
[2016-10-20] MEDS: QUEtiapine FUMARATE 100 MG TAB PO SCH (20:59)
[2016-10-21 06:29] VITALS: BP 118/65
[2016-10-21] MEDS: lamoTRIgine 25 MG TAB PO SCH ×2 (08:13→22:24)
[2016-10-21] MEDS: OXcarbazepine 150 MG TAB PO SCH ×2 (08:13→22:23)
[2016-10-21] MEDS: CitaloPRAM (CeleXA) 20 MG TAB PO SCH (08:13)
[2016-10-21] MEDS: ACETAMINOPHEN TAB 650MG DOSE (2X325MG) PO PRN (08:14)
[2016-10-21] MEDS: IBUPROFEN 400 MG TAB PO PRN ×2 (15:37→22:26)
[2016-10-21] MEDS: hydrOXYzine 50 MG TAB PO PRN (15:47)
--- NOTE | 2016-10-21 17:24 | IPN ---
DATE: 10/21/2016 26-year-old male with history of depression admitted to our unit for suicidal ideation and significant worsening of his depressive symptoms. SUBJECTIVE: "I am still having problems sleeping." OBJECTIVE: Patient continues reporting depression and intermittent suicidal thoughts. Patient is denying side effect from the medication. Patient is going to all psychotherapy activities in the unit. There is no evidence of psychotic symptoms. No auditory or visual hallucinations or delusions. MENTAL STATUS EXAMINATION: Patient dressed in [facility]. Patient is cooperative during the exam, has fair eye contact. Speech is slow and monotone. Mood is depressed and anxious. Affect is restricted. No delusions or hallucinations. Memory is fair. Patient is fully oriented. Associations are intact. Thinking is logical. Thought content is appropriate. Patient is able to contract for safety during the hospitalization, but reports intermittent suicidal thoughts. Insight and judgment is limited. ASSESSMENT: 1. Depression. 2. Suicidal ideation. 3. Alcohol/cannabis abuse. PLAN: 1. Continue Celexa 20 mg by mouth every morning. 2. Continue Lamictal 25 mg by mouth every morning and 50 mg by mouth at bedtime. 3. Continue Trileptal 150 mg by mouth twice a day. 4. Increase Seroquel to 150 mg by mouth at bedtime. 5. Start hydroxyzine 50 mg by mouth every 6 hours as needed for anxiety.
[2016-10-21 18:05] VITALS: BP 138/64
[2016-10-21] MEDS: QUEtiapine FUMARATE 50 MG TAB PO SCH (22:23)
[2016-10-22 06:36] VITALS: BP 127/58
[2016-10-22] MEDS: IBUPROFEN 400 MG TAB PO PRN ×3 (08:25→21:48)
[2016-10-22] MEDS: OXcarbazepine 150 MG TAB PO SCH ×2 (08:25→21:48)
[2016-10-22] MEDS: CitaloPRAM (CeleXA) 20 MG TAB PO SCH (08:25)
[2016-10-22] MEDS: lamoTRIgine 25 MG TAB PO SCH ×2 (08:25→21:48)
[2016-10-22] MEDS: hydrOXYzine 50 MG TAB PO PRN (10:22)
--- NOTE | 2016-10-22 15:36 | IPN ---
DATE: 10/22/2016 26-year-old male with history of depression admitted for suicidal ideation and significant worsening of his depressive symptoms. SUBJECTIVE: "I feel a little better today." OBJECTIVE: Patient is slowly improving. He reports feeling better today, although he still has intermittent suicidal thoughts and is unable to fully contract for safety if he is discharged. There is no evidence of psychotic symptoms. Patient has tolerated well the medication. Patient is sleeping better with increase of Seroquel to 150 mg by mouth nightly. MENTAL STATUS EXAMINATION: Patient is dressed in [facility]. Patient is cooperative during exam, has fair eye contact. Speech is slow and monotone. Mood is depressed and anxious. Affect is restricted. No delusions or hallucinations. Memory is fair. Patient is fully oriented. Associations are intact. Thinking is logical. Thought content is appropriate. Patient is able to contract for safety during his hospitalization, but admits intermittent suicidal thoughts. Insight and judgment is limited. ASSESSMENT: 1. Depression. 2. Suicidal ideation. 3. Alcohol/cannabis abuse. PLAN: 1. Continue Celexa 20 mg by mouth every morning. 2. Continue Lamictal 25 mg by mouth every morning and 50 mg by mouth nightly. 3. Continue Trileptal 150 mg by mouth twice a day. 4. Continue Seroquel 150 mg by mouth nightly. 5. Continue hydroxyzine as needed for anxiety. 6. Continue medication management, individual, and group therapy.
[2016-10-22 18:00] VITALS: BP 157/71
[2016-10-22] MEDS: QUEtiapine FUMARATE 50 MG TAB PO SCH (21:48)
[2016-10-23 06:00] VITALS: BP 154/67
[2016-10-23] MEDS: OXcarbazepine 150 MG TAB PO SCH ×2 (08:13→21:44)
[2016-10-23] MEDS: lamoTRIgine 25 MG TAB PO SCH ×2 (08:13→21:44)
[2016-10-23] MEDS: CitaloPRAM (CeleXA) 20 MG TAB PO SCH (08:13)
[2016-10-23] MEDS: IBUPROFEN 400 MG TAB PO PRN ×2 (08:14→21:45)
--- NOTE | 2016-10-23 15:15 | IPN ---
DATE: 10/23/2016 26-year-old male with history of depression admitted for suicidal ideation and significant worsening of his depressive symptoms. SUBJECTIVE: "I am starting to feel better". OBJECTIVE: The patient is improving slowly. The patient is reporting intermittent suicidal ideation, however, he is able to contract for safety. The patient does not have psychotic features. The patient is able to sleep better with the help of Seroquel 150 mg at bedtime. Denies side effects from the medication. MENTAL STATUS EXAM: The patient is dressed in [facility]. The patient is cooperative, has fair eye contact. Speech is normal in rate, volume, articulation and is spontaneous. Mood is depressed and anxious, but improved. Affect is not as restricted. No delusions or hallucinations. Memory, attention and concentration are fair. The patient continues to report intermittent suicidal thoughts, but less frequent and intense. Insight and judgment is improving. ASSESSMENT: 1. Depression. 2. Suicidal ideation. 3. Alcohol/cannabis abuse. PLAN: 1. Continue Celexa 20 mg by mouth every a.m. 2. Continue Lamictal 25 mg by mouth every a.m. and 50 mg by mouth at bedtime. 3. Continue Trileptal 150 mg by mouth twice a day. 4. Continue Seroquel 150 mg by mouth at bedtime. 5. Continue medication management, individual and group therapy.
[2016-10-23 18:17] VITALS: BP 136/70
[2016-10-23] MEDS: QUEtiapine FUMARATE 50 MG TAB PO SCH (21:44)
[2016-10-24 06:12] VITALS: BP 134/60
[2016-10-24] MEDS: lamoTRIgine 25 MG TAB PO SCH ×2 (08:30→22:34)
[2016-10-24] MEDS: CitaloPRAM (CeleXA) 20 MG TAB PO SCH (08:30)
[2016-10-24] MEDS: OXcarbazepine 150 MG TAB PO SCH ×2 (08:30→22:33)
[2016-10-24] MEDS: IBUPROFEN 400 MG TAB PO PRN ×3 (08:31→22:34)
[2016-10-24 18:00] VITALS: BP 140/89
[2016-10-24] MEDS: QUEtiapine FUMARATE 50 MG TAB PO SCH (22:34)
[2016-10-25 06:14] VITALS: BP 129/74
[2016-10-25] MEDS: CitaloPRAM (CeleXA) 20 MG TAB PO SCH (08:17)
[2016-10-25] MEDS: IBUPROFEN 400 MG TAB PO PRN ×3 (08:17→22:00)
[2016-10-25] MEDS: lamoTRIgine 25 MG TAB PO SCH ×2 (08:17→21:59)
[2016-10-25] MEDS: OXcarbazepine 150 MG TAB PO SCH ×2 (08:17→21:59)
[2016-10-25] MEDS: hydrOXYzine 50 MG TAB PO PRN (17:57)
[2016-10-25 18:27] VITALS: BP 130/60
[2016-10-25] MEDS ORDERED: hydrOXYzine 50 MG TAB PO STA (19:18)
[2016-10-25] MEDS: QUEtiapine FUMARATE 50 MG TAB PO SCH (21:59)
[2016-10-26 06:37] VITALS: BP 121/58
[2016-10-26] MEDS: hydrOXYzine 50 MG TAB PO PRN (08:31)
[2016-10-26] MEDS: CitaloPRAM (CeleXA) 20 MG TAB PO SCH (08:31)
[2016-10-26] MEDS: lamoTRIgine 25 MG TAB PO SCH ×2 (08:31→21:24)
[2016-10-26] MEDS: OXcarbazepine 150 MG TAB PO SCH ×2 (08:31→21:24)
[2016-10-26] MEDS: IBUPROFEN 400 MG TAB PO PRN ×2 (08:32→21:24)
[2016-10-26] MEDS: VENLAFAXINE **XR** 37.5 MG CAPSULE PO SCH (11:53)
--- NOTE | 2016-10-26 16:54 | IPN ---
DATE: 10/26/2016 26-year-old male with history of depression admitted for suicidal ideation and significant worsening of his depressive symptoms. SUBJECTIVE: "I have been feeling very anxious today". OBJECTIVE: The patient reports that after he learned that he has gained weight, he became very anxious and frustrated. Today, during the session, we discussed the fact that when he came in, he reported that he was having mood swings that were coming out of the blue, but that we are seeing that he has been reactive emotionally to emotions and cognitive distortions that are not necessarily related to interpersonal interactions. The example is as I stated earlier that he became very anxious and frustrated when he learned about his weight gain, which means he is reacting to his appearance, if he likes or not what he sees in the mirror, how other people are going to be seeing him. If these other people have good or bad opinion about him, which is more related to his personality, style and the way he deals with his problems. We discussed the treatment plan. He says that he is sleeping better with the help of medication, but again he is taking Seroquel which is a medication that could include increasing his weight. MENTAL STATUS EXAM: The patient is dressed in [facility]. The patient is clean and well groomed. The patient is cooperative. Has poor eye contact. Speech is normal in rate, volume, articulation. Is quite spontaneous. Mood is reported as anxious today. Affect is congruent with mood. No evidence of delusions or hallucinations. Memory, attention and concentration are fair. The patient is denying suicidal or homicidal ideation during the interview and is able to contract for safety while in the hospital. Insight and judgment is limited. ASSESSMENT: 1. Depression. 2. Suicidal ideation. 3. Alcohol/cannabis abuse. PLAN: 1. Continue with Celexa 20 mg by mouth every a.m. and taper this medication slowly. 2. Start Seroquel 37.5 mg by mouth every morning. 3. Continue with Lamictal 25 mg by mouth every morning and 50 mg by mouth at bedtime. 4. Continue Trileptal 150 mg by mouth twice a day. 5. Discontinue Seroquel. 6. Start trazodone 200 mg by mouth at bedtime 7. Continue medication management, individual and group therapy.
[2016-10-26 18:01] VITALS: BP 125/55
[2016-10-26] MEDS ORDERED: traZODone 100 MG TAB PO SCH (21:00)
[2016-10-27 06:22] VITALS: BP 123/59
[2016-10-27] MEDS: OXcarbazepine 150 MG TAB PO SCH ×2 (08:33→20:53)
[2016-10-27] MEDS: IBUPROFEN 400 MG TAB PO PRN ×3 (08:33→23:47)
[2016-10-27] MEDS: VENLAFAXINE **XR** 37.5 MG CAPSULE PO SCH (08:34)
[2016-10-27] MEDS: lamoTRIgine 25 MG TAB PO SCH ×2 (08:34→20:54)
[2016-10-27] MEDS: CitaloPRAM (CeleXA) 20 MG TAB PO SCH (08:34)
[2016-10-27] MEDS: hydrOXYzine 50 MG TAB PO PRN ×3 (08:34→23:47)
[2016-10-27 18:00] VITALS: BP 126/60
[2016-10-27] MEDS ORDERED: traZODone 100 MG TAB PO SCH (21:00)
[2016-10-28 06:47] VITALS: BP 111/57
[2016-10-28] MEDS: OXcarbazepine 150 MG TAB PO SCH (08:58)
[2016-10-28] MEDS: IBUPROFEN 400 MG TAB PO PRN (08:59)
[2016-10-28] MEDS: lamoTRIgine 25 MG TAB PO SCH (08:59)
[2016-10-28] MEDS ORDERED: VENLAFAXINE **XR** 75MG CAPSULE PO SCH (09:00)
[2016-10-28] MEDS ORDERED: CitaloPRAM (CeleXA) 10 MG TABLET PO SCH (09:00)
[2016-10-28] MEDS ORDERED: LAMI25TA PO (09:15)
[2016-10-28] MEDS ORDERED: TRAZ10TA PO ×2 (09:15→11:23)
[2016-10-28] MEDS ORDERED: CELE10TA PO (09:15)
[2016-10-28] MEDS ORDERED: OXCA150T PO (09:15)
[2016-10-28] MEDS ORDERED: VENL75CA2 PO (09:15)
--- NOTE | 2016-10-29 10:24 | MHDS ---
DATE OF ADMISSION: 10/15/2016 DATE OF DISCHARGE: 10/28/2016 LEGAL STATUS AT ADMISSION: 9.39 legal status. HISTORY OF PRESENT ILLNESS: 26-year-old male with history of depression admitted to our unit on a 9.39 legal status. According to the chart, the patient was brought to our emergency department (ED) by the police on a 9.41. The patient made suicidal threats to his friend and his father. The patient stated that he was drinking. He was discharged from our unit on 10/05/2016. The patient also reported that he was cutting himself and has multiple superficial cuts on his left arm. The patient admits the use of alcohol and cannabis. The patient was guarded during his evaluation at the ED. The patient was also minimizing the events. The patient was making statements such as "I guess so". During the interview today, the patient states that he minimized and at times lied during his last admission in order to be discharged. He says that he went to visit his family in [place] and returned. He says that he has been having significant mood swings and depression. He can identify that when he drinks his symptoms are worse and also that he has a tendency to act out his thoughts. The patient reports that he has been compliant with his medication. He reports feeling depressed, hopeless, with poor energy, insomnia, and has suicidal thoughts. During the first interview, there is no evidence of auditory or visual hallucinations or delusions. He denied side effects from the medications. LABS AT ADMISSION: His CBC showed a hemoglobin of 12.2, hematocrit of 38, MCV of 64.8, RDW of 15.9. Repeated CBC on 10/20/2016 showed a hemoglobin of 11.4, hematocrit of 35.5, MCV of 65.3, RDW of 16.8 and platelets of 137. CMP showed a total bilirubin of 2.3, the rest within normal limits. TSH within normal limits. On 10/18/2016, his total bilirubin was 1.1. The rest of the CMP was within normal limits. Urine drug screen was negative. His blood alcohol level was 0.14. HOSPITAL COURSE: After the first evaluation, the patient was restarted on his previous to admission medications, Celexa 10 mg by mouth every morning, Lamictal 25 mg by mouth twice a day, and Trileptal 75 mg by mouth twice a day. He was also started on Seroquel 150 mg by mouth at bedtime. During this hospital admission, the patient had no complications. The patient has a family history of bipolar disorder. He said his father was diagnosed of bipolar times one. During his hospitalization the last time, he was started on Celexa, a very low dose and mood stabilizers. Trileptal went up to 150 mg by mouth twice a day with the idea of keeping this medication in order to be able to increase the Lamictal up to therapeutic range. At that time, suspicion is that the patient could suffer from bipolar disorder. However, at this time, in addition to the symptoms he reports along with the mood swings coming out of the blue, we could observe some personality traits. As example, he became very upset, distraught, anxious, and requesting medication for anxiety when he learned that his weight went up. Therefore, seeing this new set of symptoms, it was decided to switch Celexa to Effexor. He reported improvement within two days. Again, since weight gain was one of his major concerns, I discussed this fact with the patient and told him that Seroquel probably was contributing and therefore it was decided to switch to trazodone. The patient needed 300 mg of trazodone to be able to sleep well at night. On 10/24/2016, the patient is in stable condition with no auditory or visual hallucinations. No delusions. The patient is denying suicidal or homicidal ideation. His mood is euthymic and he feels he can continue his treatment as an outpatient. He is in stable condition and motivated for his treatment. Therefore, he is discharged on this date. MEDICATIONS AT DISCHARGE: - Effexor XR 75 mg by mouth every morning - Celexa 10 mg by mouth every morning to take ten days and then discontinue - trazodone 300 mg by mouth at bedtime - Lamictal 50 mg by mouth twice a day - Trileptal 75 mg by mouth twice a day, tapering dose, that will be further tapered and discontinued when Lamictal is at therapeutic level MENTAL STATUS EXAMINATION AT DISCHARGE: The patient is dressed in [facility]. The patient is calm and cooperative. His speech is clear, coherent with normal rate and is spontaneous. The patient has good eye contact. Mood is euthymic, affect is appropriate and congruent with mood. The patient is oriented to time, place, person and situation. Maintains attention and concentration correctly. Instant recall, recent and remote memory are intact. Thought process are logical and goal directed. The patient does not have auditory or visual hallucinations. The patient does not have paranoid, persecutory, somatic, grandiose or sabianist delusions. The patient is denying suicidal or homicidal ideation. Judgment and insight are fair. DISCHARGE DIAGNOSES: [place] I: Major depressive disorder. Rule out bipolar disorder, depressed episode. Rule out substance induced mood disorder. Alcohol and cannabis abuse. [place] II: Deferred. [place] III: Self inflicted lacerations on arms. CONDITION AT DISCHARGE: Stable. No suicidal or homicidal ideations. No auditory or visual hallucinations. No delusions. INSTRUCTIONS TO THE PATIENT: The patient is to continue taking his medications as prescribed and followup appointments. He is advised to maintain absolute sobriety from drugs and alcohol. The patient has scheduled appointment for primary care physician, psychotropic medication management and individual psychotherapy.
== END 2016-10-28 13:40 | disposition home or self-care (01) | DRG 754 ==
LOC: M ED 16:33 → M ED INP 20:49 → M PSY 22:10
PROVIDERS: ADMIT Psychiatry & Neurology Psychiatry; ATTEND Psychiatry & Neurology Psychiatry
DX: F32.9 Major depressive disorder, single episode, unspecified (principal); F19.14 Other psychoactive substance abuse with psychoactive substance-induced mood disorder; F10.10 Alcohol abuse, uncomplicated; F12.10 Cannabis abuse, uncomplicated; Z91.5 Personal history of self-harm; F17.290 Nicotine dependence, other tobacco product, uncomplicated; Z79.899 Other long term (current) drug therapy; Z81.8 Family history of other mental and behavioral disorders; Z83.49 Family history of other endocrine, nutritional and metabolic diseases; Z80.7 Family history of other malignant neoplasms of lymphoid, hematopoietic and related tissues; S41.112A Laceration without foreign body of left upper arm, initial encounter; X78.9XXA Intentional self-harm by unspecified sharp object, initial encounter; Y92.9 Unspecified place or not applicable; Y93.89 Activity, other specified; Y99.9 Unspecified external cause status

== ENCOUNTER → 2023-03-26 | Outpatient (CLI) | payer MEDICARE, MEDICAID ==
[~2023-03-26] MED LIST changes: +CITA10TA7 PO; +LAMO25TA4 PO; -OXCA150T PO; +OXCA150T21 PO; +QUET50TA4 PO; -QUET5TAB PO; +SERO50TA PO; +TRAZ1TAB12 PO; +VENL75CA2 PO
[2023-03-26 12:00] LABS: BASO % 0.7 % (0.0-1.0); EOS # 0.1 10^3/uL (0.0-0.5); HEMATOCRIT 39.5 % (42.0-52.0); HEMOGLOBIN 12.1 g/dl (13.5-17.5); LYMPH # 1.6 10^3/uL (1.5-5.0); LYMPH % 27.8 % (24.0-44.0); MEAN CORPUSCULAR HGB CONC 30.6 g/dl (32.0-36.5); MEAN CORPUSCULAR VOLUME 65.3 fl (80.0-96.0); MONO # 0.5 10^3/uL (0.0-0.8); MONO % 8.8 % (2.0-8.0); NEUTROPHILS # 3.5 10^3/uL (1.5-8.5); PLATELET COUNT, AUTOMATED 167 10^3/uL (150-450); RED BLOOD COUNT 6.05 10^6/uL (4.30-6.10); WHITE BLOOD COUNT 5.9 10^3/uL (4.0-10.0)
[2023-03-26 12:30] LABS: ALBUMIN 3.9 G/DL (3.2-5.2); ALKALINE PHOSPHATASE 86 U/L (46-116); ALT/SGPT 38 U/L (7.0-40); AST/SGOT 20 U/L (<34); BILIRUBIN,TOTAL 1.2 MG/DL (0.3-1.2); BLOOD UREA NITROGEN 16 MG/DL (9-23); CALCIUM LEVEL 9.1 MG/DL (8.5-10.1); CARBON DIOXIDE LEVEL 29 MMOL/L (20-31); CHLORIDE LEVEL 106 MMOL/L (98-107); CHOLESTEROL LEVEL 161 MG/DL (<200); CHOLESTEROL RISK RATIO 4.35 (<5); CREATININE FOR GFR 1.09 MG/DL (0.70-1.30); GLOMERULAR FILTRATION RATE > 60.0 (>60); GLUCOSE, FASTING 78 MG/DL (60-100); LDL CHOLESTEROL 103.6 MG/DL (<100); POTASSIUM SERUM 4.4 MMOL/L (3.5-5.1); SODIUM LEVEL 141 MMOL/L (136-145); TOTAL PROTEIN 7.1 G/DL (5.7-8.2); TRIGLYCERIDES LEVEL 102 MG/DL (<150)
[2023-03-27 15:07] LABS: PSA TOTAL 0.2 ng/mL (0.0-4.0)
== END ==
LOC: M PLALAB 09:18
PROVIDERS: ATTEND Nurse Practitioner Family
DX: Z76.89 Persons encountering health services in other specified circumstances (principal); N52.9 Male erectile dysfunction, unspecified; Z13.220 Encounter for screening for lipoid disorders; Z13.1 Encounter for screening for diabetes mellitus; F25.0 Schizoaffective disorder, bipolar type

== ENCOUNTER 2023-07-21 08:26 | Day surgery (SDC) | payer MEDICARE, MEDICAID ==
[~2023-07-21] VITALS: Ht 182.9 cm; Wt 152.1 kg
[2023-07-21] MEDS: NS 1,000 ML IV ONE (06:00)
[~2023-07-21 08:26] MED LIST changes: +ARIP1TAB10 PO; +DEXT10TA2 PO; +DULO1CAP4 PO; +DULO1CAP6 PO; +GABA600T4 PO
[2023-07-21] MEDS ORDERED: LIDOCAINE 2% 100MG/5ML SDV (FOR ANES.) As Ordered ONE (09:43)
[2023-07-21] MEDS ORDERED: propofoL 200 MG/20 ML VIAL As Ordered ONE (09:43)
[2023-07-21 10:02] VITALS: TEMP 96.9
[2023-07-21 10:15] VITALS: BP 113/59; O2SAT 97
== END 2023-07-21 10:22 | disposition home or self-care (01) ==
LOC: M OPP 08:26
PROVIDERS: ATTEND Surgery
DX: K64.0 First degree hemorrhoids (principal); K92.1 Melena; Z87.891 Personal history of nicotine dependence; Z79.891 Long term (current) use of opiate analgesic; Z79.899 Other long term (current) drug therapy

== ENCOUNTER 2023-08-04 14:59 | Inpatient (IN) | payer MEDICARE, MEDICAID ==
[~2023-08-04] VITALS: Ht 182.9 cm; Wt 152.1 kg
[2023-08-04 16:29] LABS: HEMATOCRIT 38.9 % (42.0-52.0); HEMOGLOBIN 12.3 g/dl (13.5-17.5); MEAN CORPUSCULAR HEMOGLOBIN 20.2 pg (27.0-33.0); MEAN CORPUSCULAR HGB CONC 31.6 g/dl (32.0-36.5); MEAN CORPUSCULAR VOLUME 63.8 fl (80.0-96.0); PLATELET COUNT, AUTOMATED 200 10^3/uL (150-450)
[2023-08-04 16:53] LABS: ETHYL ALCOHOL (ETHANOL) 0.004 % (0.000-0.010)
[2023-08-04 16:55] LABS: ALBUMIN 4.2 G/DL (3.2-5.2); ALKALINE PHOSPHATASE 90 U/L (46-116); ALT/SGPT 33 U/L (7.0-40); AST/SGOT 20 U/L (<34); BILIRUBIN,DIRECT 0.5 MG/DL (<0.4); BILIRUBIN,TOTAL 1.2 MG/DL (0.3-1.2); BLOOD UREA NITROGEN 12 MG/DL (9-23); CARBON DIOXIDE LEVEL 28 MMOL/L (20-31); CHLORIDE LEVEL 103 MMOL/L (98-107); CREATININE FOR GFR 1.13 MG/DL (0.70-1.30); GLOMERULAR FILTRATION RATE > 60.0 (>60); GLUCOSE, FASTING 89 MG/DL (60-100); SALICYLATE LEVEL < 3.0 MG/DL (<30); SODIUM LEVEL 139 MMOL/L (136-145); TOTAL PROTEIN 7.5 G/DL (5.7-8.2)
[2023-08-04 16:57] LABS: THYROID STIMULATING HORMONE 3.738 uIU/ML (0.55-4.78)
[2023-08-04 17:20] LABS: BARBITURATES URINE NEGATIVE (NEGATIVE); BENZODIAZEPINES URINE NEGATIVE (NEGATIVE); CANNABINOIDS URINE NEGATIVE (NEGATIVE); COCAINE METABOLITE URINE NEGATIVE (NEGATIVE); METHADONE URINE NEGATIVE (NEGATIVE); OPIATES URINE NEGATIVE (NEGATIVE); PHENCYCLIDINE URINE NEGATIVE (NEGATIVE)
[2023-08-04] MEDS ORDERED: HOME MED LIST COMPLETE! XX SCH (17:20)
[2023-08-04 17:37] LABS: AMPHETAMINES LEVEL URINE POSITIVE (NEGATIVE)
[2023-08-05] MEDS ORDERED: PILL CUTTER 1 EACH XX ONE (01:42)
[2023-08-05] MEDS: DULoxetine 20MG CAP (CYMBALTA) PO ONE (01:45)
[2023-08-05] MEDS: ARIPiprazole 10 MG TAB PO ONE (01:46)
[2023-08-05] MEDS: GABAPENTIN 300 MG CAP PO ONE (01:46)
[2023-08-05] MEDS ORDERED: MOM 30ML SUSPENSION UDC PO PRN (04:45)
[2023-08-05] MEDS ORDERED: MAALOX 30 ML SUSP *UDC PO PRN (04:45)
[2023-08-05] MEDS ORDERED: IBUPROFEN 400MG TAB PO PRN (04:45)
[2023-08-05] MEDS ORDERED: traZODone 50 MG TAB PO PRN (04:45)
[2023-08-05] MEDS ORDERED: ACETAMINOPHEN TAB 650MG DOSE (2X325MG) PO PRN (04:45)
[2023-08-05 09:14] VITALS: BP 135/77; TEMP 97.1; O2SAT 99
[2023-08-05] MEDS: GABAPENTIN 300 MG CAP PO SCH (15:48)
[2023-08-05 16:00] VITALS: BP 134/63; TEMP 97.3; O2SAT 97
[2023-08-05] MEDS: DULoxetine 30MG CAPSULE (CYMBALTA) PO SCH (20:24)
[2023-08-05] MEDS: ARIPiprazole 15 MG TAB (AbiLIFY) PO SCH (20:24)
[2023-08-05] MEDS: DULoxetine 20MG CAP (CYMBALTA) PO SCH (20:24)
[2023-08-05] MEDS: diphenhydrAMINE 25MG CAP PO PRN (20:51)
[2023-08-05] MEDS ORDERED: DULoxetine 20MG CAP (CYMBALTA) PO ONE (21:00)
[2023-08-05] MEDS ORDERED: DULoxetine 30MG CAPSULE (CYMBALTA) PO ONE (21:00)
[2023-08-05] MEDS ORDERED: ARIPiprazole 10 MG TAB PO ONE (21:00)
[2023-08-06 05:46] VITALS: BP 119/65; TEMP 97.1; O2SAT 96
[2023-08-06] MEDS: GABAPENTIN 400MG CAP PO SCH (08:12)
[2023-08-06] MEDS: DEXTROAMPHETAMINE PO SCH (13:12)
[2023-08-06 16:18] VITALS: BP 132/66; TEMP 98.1; O2SAT 98
[2023-08-06] MEDS: DIVALPROEX 125 MG TAB PO SCH (20:09)
[2023-08-07 06:42] VITALS: BP 132/67; TEMP 96.7; O2SAT 99
[2023-08-07 07:02] LABS: CHOLESTEROL RISK RATIO 3.53 (<5); LDL CHOLESTEROL 57.2 MG/DL (<100)
[2023-08-07] MEDS ORDERED: ENTER DRUG NAME HERE (PATIENT'S OWN MED) PO SCH (09:00)
[2023-08-07 16:18] VITALS: BP 137/64; TEMP 97.9; O2SAT 100
[2023-08-07] MEDS: ARIPiprazole 10 MG TAB PO SCH (20:05)
[2023-08-08 06:40] VITALS: BP 144/91; TEMP 96.9; O2SAT 99
[2023-08-08 07:48] LABS: CHOLESTEROL RISK RATIO 3.69 (<5); HDL CHOLESTEROL 31.4 MG/DL (>40); LDL CHOLESTEROL 56.6 MG/DL (<100); NON-HDL-C 84.6 MG/DL
[2023-08-08] MEDS: DULoxetine 30MG CAPSULE (CYMBALTA) PO SCH (08:15)
[2023-08-08] MEDS: DULoxetine 20MG CAP (CYMBALTA) PO SCH (08:15)
[2023-08-08 16:22] VITALS: BP 132/64; TEMP 97.6; O2SAT 98
[2023-08-08] MEDS: DIVALPROEX 250MG TAB PO SCH (20:13)
[2023-08-09 06:17] VITALS: BP 135/65; TEMP 96.3; O2SAT 99
[2023-08-09] MEDS ORDERED: CYMB1CAP5 PO (08:57)
[2023-08-09] MEDS ORDERED: ARIP1TAB43 PO (08:57)
[2023-08-09] MEDS ORDERED: DULO1CAP4 PO (08:57)
[2023-08-09] MEDS ORDERED: GABA-284 PO (08:57)
[2023-08-09] MEDS ORDERED: DEPA250T32 PO (08:57)
== END 2023-08-09 10:55 | disposition home or self-care (01) | DRG 885 ==
LOC: M ED 14:59 → M ED INP 08-05 04:43 → M PSY 08-05 09:15
PROVIDERS: ADMIT Student in an Organized Health Care Education/Training Program; ATTEND Student in an Organized Health Care Education/Training Program
DX: F25.0 Schizoaffective disorder, bipolar type (principal); Z68.42 Body mass index [BMI] 45.0-49.9, adult; D56.9 Thalassemia, unspecified; E66.01 Morbid (severe) obesity due to excess calories; R73.03 Prediabetes; G47.30 Sleep apnea, unspecified; Z87.891 Personal history of nicotine dependence; Z83.3 Family history of diabetes mellitus; Z62.812 Personal history of neglect in childhood; Z91.51 Personal history of suicidal behavior; Z79.899 Other long term (current) drug therapy; Z91.52 Personal history of nonsuicidal self-harm

== ENCOUNTER → 2023-08-18 | Outpatient (REF) | payer MEDICARE, MEDICAID, OTHER ==
[~2023-08-18] MED LIST changes: +ARIP1TAB43 PO; +CYMB1CAP5 PO; +DEPA250T32 PO; +GABA-284 PO
== END ==
LOC: M SFHCPLAZ 17:01
PROVIDERS: ATTEND Physician Assistant
DX: R09.81 Nasal congestion (principal)

== ENCOUNTER → 2023-08-25 | Outpatient (CLI) | payer MEDICARE, OTHER | LOC: M PLALAB 10:16 | PROVIDERS: ATTEND Psychiatry & Neurology Child & Adolescent Psychiatry | DX: F25.0 Schizoaffective disorder, bipolar type (principal); F43.23 Adjustment disorder with mixed anxiety and depressed mood ==

== ENCOUNTER → 2023-12-21 | Outpatient (CLI) | payer MEDICARE, MEDICAID ==
[~2023-12-21] MED LIST changes: -ARIP1TAB43 PO; +ARIP20TA51 PO; +GABA-1490 PO; -GABA600T4 PO
[2023-12-21 15:38] LABS: BASO % 0.6 % (0.0-1.0); EOS # 0.1 10^3/uL (0.0-0.5); EOS % 1.9 % (0.0-3.0); HEMATOCRIT 38.6 % (42.0-52.0); LYMPH % 31.3 % (24.0-44.0); MEAN CORPUSCULAR HEMOGLOBIN 20.4 pg (27.0-33.0); MEAN CORPUSCULAR HGB CONC 31.1 g/dl (32.0-36.5); MEAN CORPUSCULAR VOLUME 65.8 fl (80.0-96.0); MONO # 0.7 10^3/uL (0.0-0.8); MONO % 10.7 % (2.0-8.0); NEUTROPHILS # 3.5 10^3/uL (1.5-8.5); NEUTROPHILS % 53.8 % (36.0-66.0); PLATELET COUNT, AUTOMATED 156 10^3/uL (150-450); RED BLOOD COUNT 5.87 10^6/uL (4.30-6.10); WHITE BLOOD COUNT 6.5 10^3/uL (4.0-10.0)
[2023-12-21 16:04] LABS: TOTAL IRON BINDING CAPACITY 315 UG/DL (250-425)
[2023-12-21 16:05] LABS: ALBUMIN 4.1 G/DL (3.2-5.2); ALKALINE PHOSPHATASE 81 U/L (46-116); ALT/SGPT 38 U/L (7.0-40); AST/SGOT 17 U/L (<34); BILIRUBIN,TOTAL 1.2 MG/DL (0.3-1.2); BLOOD UREA NITROGEN 13 MG/DL (9-23); CALCIUM LEVEL 9.3 MG/DL (8.5-10.1); CARBON DIOXIDE LEVEL 29 MMOL/L (20-31); CHLORIDE LEVEL 108 MMOL/L (98-107); CHOLESTEROL LEVEL 147 MG/DL (<200); CHOLESTEROL RISK RATIO 5.05 (<5); GLOMERULAR FILTRATION RATE > 60.0 (>60); GLUCOSE, FASTING 85 MG/DL (60-100); HDL CHOLESTEROL 29.1 MG/DL (>40); IRON (FE) 75 UG/DL (65-175); LDL CHOLESTEROL 92.1 MG/DL (<100); NON-HDL-C 117.9 MG/DL; PERCENT SATURATION 23.8 % (19.7-50.0); POTASSIUM SERUM 4.7 MMOL/L (3.5-5.1); SODIUM LEVEL 143 MMOL/L (136-145); TOTAL PROTEIN 7.3 G/DL (5.7-8.2); TRIGLYCERIDES LEVEL 129 MG/DL (<150)
== END ==
LOC: M PLALAB 13:50
PROVIDERS: ATTEND Nurse Practitioner Family
DX: D50.9 Iron deficiency anemia, unspecified (principal); E78.2 Mixed hyperlipidemia

== ENCOUNTER 2024-01-20 10:55 | Emergency (ER) | payer MEDICARE, MEDICAID ==
[~2024-01-20] VITALS: Ht 182.9 cm; Wt 144.3 kg
[2024-01-20] MEDS ORDERED: REFR0.5D8 OP (13:15)
[2024-01-20] MEDS ORDERED: VILO200C PO (13:15)
[2024-01-20] MEDS ORDERED: DEXT1TAB19 PO (13:15)
[2024-01-20] MEDS ORDERED: TADA5TAB PO (13:15)
[2024-01-20] MEDS ORDERED: DIVA1TAB48 PO (13:15)
[2024-01-20] MEDS ORDERED: OLOP2.5D3 OP (13:15)
[2024-01-20] MEDS ORDERED: GABA-284 PO (13:15)
[2024-01-20 15:10] LABS: BASO # 0.1 10^3/uL (0.0-0.2); BASO % 0.8 % (0.0-1.0); EOS # 0.1 10^3/uL (0.0-0.5); EOS % 1.5 % (0.0-3.0); HEMATOCRIT 39.1 % (42.0-52.0); HEMOGLOBIN 12.4 g/dl (13.5-17.5); LYMPH # 2.6 10^3/uL (1.5-5.0); MEAN CORPUSCULAR HEMOGLOBIN 20.4 pg (27.0-33.0); MEAN CORPUSCULAR HGB CONC 31.7 g/dl (32.0-36.5); MEAN CORPUSCULAR VOLUME 64.2 fl (80.0-96.0); MONO # 0.8 10^3/uL (0.0-0.8); MONO % 8.7 % (2.0-8.0); NEUTROPHILS # 5.4 10^3/uL (1.5-8.5); PLATELET COUNT, AUTOMATED 227 10^3/uL (150-450); RED BLOOD COUNT 6.09 10^6/uL (4.30-6.10); WHITE BLOOD COUNT 9.3 10^3/uL (4.0-10.0)
[2024-01-20 15:37] LABS: LIPASE 29 U/L (12-53)
[2024-01-20 15:40] LABS: ALBUMIN 4.1 G/DL (3.2-5.2); ALKALINE PHOSPHATASE 88 U/L (46-116); ALT/SGPT 51 U/L (7.0-40); AST/SGOT 21 U/L (<34); BILIRUBIN,DIRECT 0.4 MG/DL (<0.4); BILIRUBIN,TOTAL 1.1 MG/DL (0.3-1.2); BLOOD UREA NITROGEN 15 MG/DL (9-23); CALCIUM LEVEL 9.5 MG/DL (8.5-10.1); CARBON DIOXIDE LEVEL 28 MMOL/L (20-31); CHLORIDE LEVEL 105 MMOL/L (98-107); CREATININE FOR GFR 1.12 MG/DL (0.70-1.30); GLOMERULAR FILTRATION RATE > 60.0 (>60); GLUCOSE, FASTING 81 MG/DL (60-100); POTASSIUM SERUM 3.9 MMOL/L (3.5-5.1); SODIUM LEVEL 138 MMOL/L (136-145); TOTAL PROTEIN 7.5 G/DL (5.7-8.2)
[2024-01-20 15:42] LABS: FREE T4 1.07 NG/DL (0.89-1.76); THYROID STIMULATING HORMONE 2.622 uIU/ML (0.55-4.78)
[2024-01-20 16:55] VITALS: BP 128/72; TEMP 98; O2SAT 100
== END 2024-01-20 17:01 | disposition home or self-care (01) ==
LOC: M ED 10:55
DX: R53.83 Other fatigue (principal); E03.9 Hypothyroidism, unspecified; Z79.899 Other long term (current) drug therapy

== ENCOUNTER → 2024-03-22 | Outpatient (REF) | payer MEDICARE, MEDICAID ==
[~2024-03-22] MED LIST changes: +DEXT1TAB19 PO; +DIVA1TAB48 PO; +OLOP2.5D3 OP; +REFR0.5D8 OP; +TADA5TAB94 PO; +VILO200C PO
== END ==
LOC: M SMT 12:51
PROVIDERS: ATTEND Urology
DX: Z30.2 Encounter for sterilization (principal)

== ENCOUNTER → 2024-05-09 | Outpatient (REF) | payer MEDICARE, MEDICAID ==
[2024-05-09 12:10] LABS: SEMEN APPEARANCE OPAQUE (OPAQUE); SEMEN VISCOSITY LIQUID (LIQUID); SEMEN VOLUME 1.6 ml (2.0-5.0); SEMEN pH 8.5 (7.0-8.0)
[2024-05-09 12:11] LABS: WBC CONCENTRATION <=1 M/ml (<=1 M/ml)
== END ==
LOC: M SMT 11:48
PROVIDERS: ATTEND Urology
DX: Z30.2 Encounter for sterilization (principal)

== ENCOUNTER 2024-06-08 12:02 | Inpatient (IN) | payer MEDICARE, MEDICAID ==
[~2024-06-08] VITALS: Ht 182.9 cm; Wt 147.1 kg
[2024-06-08] MEDS ORDERED: DIAZ5TAB PO (12:10)
[2024-06-08 15:24] LABS: HEMATOCRIT 37.4 % (42.0-52.0); HEMOGLOBIN 11.9 g/dl (13.5-17.5); MEAN CORPUSCULAR HEMOGLOBIN 20.6 pg (27.0-33.0); MEAN CORPUSCULAR HGB CONC 31.8 g/dl (32.0-36.5); MEAN CORPUSCULAR VOLUME 64.8 fl (80.0-96.0); PLATELET COUNT, AUTOMATED 186 10^3/uL (150-450); RED BLOOD COUNT 5.77 10^6/uL (4.30-6.10); WHITE BLOOD COUNT 6.3 10^3/uL (4.0-10.0)
[2024-06-08 15:27] LABS: ETHYL ALCOHOL (ETHANOL) < 0.003 % (0.000-0.010)
[2024-06-08 15:28] LABS: ALBUMIN 4.1 G/DL (3.2-5.2); ALKALINE PHOSPHATASE 80 U/L (40-129); ALT/SGPT 49 U/L (7.0-40); AST/SGOT 28 U/L (<34); BILIRUBIN,DIRECT 0.3 MG/DL (<0.4); BILIRUBIN,TOTAL 0.9 MG/DL (0.3-1.2); BLOOD UREA NITROGEN 10 MG/DL (9-23); CALCIUM LEVEL 9.3 MG/DL (8.5-10.1); CARBON DIOXIDE LEVEL 26 MMOL/L (20-31); CHLORIDE LEVEL 106 MMOL/L (98-107); CREATININE FOR GFR 1.07 MG/DL (0.70-1.30); GLOMERULAR FILTRATION RATE > 60.0 (>60); GLUCOSE, FASTING 98 MG/DL (60-100); SALICYLATE LEVEL < 3.0 MG/DL (<30); SODIUM LEVEL 142 MMOL/L (136-145); TOTAL PROTEIN 7.4 G/DL (5.7-8.2)
[2024-06-08 15:31] LABS: THYROID STIMULATING HORMONE 2.206 uIU/ML (0.55-4.78)
[2024-06-08 15:45] LABS: AMPHETAMINES LEVEL URINE NEGATIVE (NEGATIVE); BARBITURATES URINE NEGATIVE (NEGATIVE); CANNABINOIDS URINE NEGATIVE (NEGATIVE); COCAINE METABOLITE URINE NEGATIVE (NEGATIVE); METHADONE URINE NEGATIVE (NEGATIVE); OPIATES URINE NEGATIVE (NEGATIVE); PHENCYCLIDINE URINE NEGATIVE (NEGATIVE)
[2024-06-08 15:48] LABS: BENZODIAZEPINES URINE POSITIVE (NEGATIVE)
[2024-06-08] MEDS ORDERED: HOME MED LIST COMPLETE! XX SCH (16:50)
[2024-06-08] MEDS: CALCIUM CARBONATE 500 MG CHEW U/D PO ONE (17:09)
[2024-06-08] MEDS: IBUPROFEN 800 MG TAB PO ONE (20:36)
[2024-06-09 09:15] VITALS: BP 141/78; TEMP 98.4; O2SAT 100
[2024-06-09] MEDS ORDERED: diphenhydrAMINE 25MG CAP PO PRN (10:40)
[2024-06-09] MEDS ORDERED: OLANZapine 5 MG TAB PO PRN (10:40)
[2024-06-09] MEDS ORDERED: MOM 30ML SUSPENSION UDC PO PRN (10:40)
[2024-06-09] MEDS ORDERED: traZODone 50 MG TAB PO PRN (10:40)
[2024-06-09] MEDS: GABAPENTIN 400MG CAP PO SCH (11:40)
[2024-06-09 16:57] VITALS: BP 135/69; TEMP 98.9; O2SAT 96
[2024-06-09] MEDS: MAALOX 30 ML SUSP *UDC PO PRN (20:05)
[2024-06-09] MEDS: ACETAMINOPHEN 325 MG TAB PO PRN (20:05)
[2024-06-09] MEDS: UNRESOLVED PATIENT OWN MED ORDER XX SCH (20:08)
[2024-06-09] MEDS: diazePAM 5MG TABLET PO PRN (22:53)
[2024-06-09] MEDS: CALCIUM CARBONATE 500 MG CHEW U/D PO PRN (23:21)
[2024-06-09] MEDS: IBUPROFEN 400MG TAB PO PRN (23:22)
[2024-06-10] MEDS ORDERED: PANTOPRAZOLE 40MG TAB (PROTONIX) PO SCH (09:00)
[2024-06-10] MEDS: PANTOPRAZOLE 40MG TAB (PROTONIX) PO SCH (09:21)
[2024-06-10 15:47] VITALS: BP 132/69; TEMP 98.2; O2SAT 98
[2024-06-10] MEDS: [UNRECOGNIZED DRUG - OTHER] PO SCH (16:04)
[2024-06-10] MEDS: LIDOCAINE 5% (LIDODERM) PATCH TD SCH (16:59)
[2024-06-10] MEDS: ACETAMINOPHEN 650MG ER TAB (TYLENOL ARTHRITIS) PO SCH (20:03)
[2024-06-10] MEDS: AUVELITY PO SCH (20:05)
[2024-06-11] MEDS: PANTOPRAZOLE 40MG TAB (PROTONIX) PO SCH (08:00)
[2024-06-11 16:22] VITALS: BP 120/67; TEMP 97.7; O2SAT 98
[2024-06-12 09:26] VITALS: BP 120/67; TEMP 97.7; O2SAT 98
== END 2024-06-12 11:52 | disposition home or self-care (01) | DRG 885 ==
LOC: M ED 12:02 → M ED INP 14:29 → M PSY 06-09 09:06
PROVIDERS: ADMIT Psychiatry & Neurology Psychiatry; ATTEND Psychiatry & Neurology Psychiatry
DX: F25.0 Schizoaffective disorder, bipolar type (principal); D56.9 Thalassemia, unspecified; F90.9 Attention-deficit hyperactivity disorder, unspecified type; M54.50 Low back pain, unspecified; K21.9 Gastro-esophageal reflux disease without esophagitis; G89.29 Other chronic pain; Z62.810 Personal history of physical and sexual abuse in childhood; Z81.8 Family history of other mental and behavioral disorders; Z91.52 Personal history of nonsuicidal self-harm; Z79.899 Other long term (current) drug therapy

== ENCOUNTER → 2025-02-05 | Outpatient (CLI) | payer MEDICARE, BC, MEDICAID ==
[~2025-02-05] MED LIST changes: -DEPA250T32 PO; +DIAZ5TAB PO; +DIVA-65 PO; +LAMO-18 PO; -LAMO25TA4 PO; +TADA5TAB2 PO; -TADA5TAB94 PO
[2025-02-05 11:03] LABS: VALPROIC ACID (DEPAKOTE) 38.8 UG/ML (50.0-100.0)
[2025-02-05 11:05] LABS: ALT/SGPT 26.0 U/L (7.0-40); AST/SGOT 22.0 U/L (<34); CALCIUM LEVEL 8.5 MG/DL (8.5-10.1); CARBON DIOXIDE LEVEL 28.0 MMOL/L (20-31); CHLORIDE LEVEL 106.0 MMOL/L (98-107); CHOLESTEROL LEVEL 122.0 MG/DL (<200); CHOLESTEROL RISK RATIO 3.27 (<5); CREATININE FOR GFR 1.11 MG/DL (0.70-1.30); GLOMERULAR FILTRATION RATE 89.9 (>60); LDL CHOLESTEROL 63.5 MG/DL (<100); NON-HDL-C 84.7 MG/DL; POTASSIUM SERUM 4.3 MMOL/L (3.5-5.1); SODIUM LEVEL 142.0 MMOL/L (136-145); TRIGLYCERIDES LEVEL 106.0 MG/DL (<150)
[2025-02-05 11:06] LABS: PLATELET COUNT, AUTOMATED 176 10^3/uL (150-450)
[2025-02-05 11:37] LABS: BASOPHILS 2 % (0-1); EOSINOPHILS 1 % (0-3); LYMPHOCYTES 21 % (16-44); MONOCYTES 7 % (0-5); NEUTROPHILS 66 % (28-66)
[2025-02-05 11:38] LABS: PLATELET ESTIMATE NORMAL (NORMAL)
[2025-02-05 12:35] LABS: ESTIMATED AVERAGE GLUCOSE 108.0 MG/DL (60-110)
== END ==
LOC: M PLALAB 08:56
PROVIDERS: ATTEND Psychiatry & Neurology Psychiatry
DX: F25.0 Schizoaffective disorder, bipolar type (principal); E78.00 Pure hypercholesterolemia, unspecified